=== PATIENT | male | born 1955 | race Caucasian/White ===

== ENCOUNTER 2024-11-25 08:38 | Day surgery (SDC) | payer MEDICARE, OTHER, SELFPAY ==
[2024-11-25] VITALS (10 sets, daily range): BP systolic 120–156; BP diastolic 50–63; BMI 27.8
[2024-11-25] MEDS: NSS 249 ML IV (09:17)
[2024-11-25 10:01] LABS: ACT-LR - POC 247 Seconds (116-155)
[2024-11-25] MEDS: NSS 1000 IV (10:27)
--- NOTE | 2024-11-25 11:09 | ITS.CL.CATH ---
Corporate Trainer - Catheterization
Cardiac Catheterization
Procedure Report:
LEFT HEART CATHETERIZATION
Date of Procedure: 11/25/2024
Procedures performed:
1: Coronary angiography
2: Left ventriculography
Primary Care Provider: Iveth GRIMALDO
Primary Screening Nurse: Dr. Андрей Bailey
INDICATION: The patient is a 69-year-old man who presents with 2 months of exertional angina. He underwent stress testing which suggested both RCA and LAD territory perfusion abnormalities. Echocardiography showed preserved LV systolic function.
He has had no resting symptoms despite walking 3 miles a day on a recent cruise to [facility]. He is a smoker. He reports his symptoms were reduced with aggressive antianginal medical therapy.
ACCESS: The patient was prepped and draped in usual sterile fashion. A 6 Maori sheath was placed in the right radial artery using the Seldinger over the wire technique.
HEMODYNAMIC FINDINGS (mmHg):
LV(s/d,EDP): 130/9, 21
Ao(s/d,m): 130/57, 79
ANGIOGRAPHIC FINDINGS:
Single-plane Left Ventriculography in [place] Projection: Normal LV systolic function with no clear regional wall motion abnormalities.
Coronary Angiography:
Dominance: Right
Left Main: Calcified ostial 50% stenosis best appreciated in the [facility] caudal projection. The midportion of appears to have some ectatic dilation followed by distal mild tapering. No dampening with 6 Maori diagnostic catheter engagement.
Left Anterior Descending: The left anterior descending artery is heavily calcified in the proximal portion but with only mild luminal irregularity. The first diagonal branch has a true ostial 70% stenosis and is a relatively small vessel that I do
not believe is a surgical target. The mid LAD has a smooth 90% stenosis. The distal LAD appears to be widely patent and an excellent surgical target.
Left Circumflex: The left circumflex artery is a very large caliber nondominant system that gives rise to
Right Coronary: Proximal total occlusion. There are brisk [id number] collaterals to a large distal RCA target.
Fluoroscopy Time (min): 2.2
Radiation Dose (mGy): 367
DAP (Gy.cm2): 19.4
Closure device: None. A TR band was applied for hemostasis at the right wrist.
Complications: None.
ASSESSMENT:
1: Severe multivessel obstructive coronary artery disease.
2: Normal LV systolic function with no significant mitral regurgitation.
CONCLUSIONS and RECOMMENDATIONS:
1: CT surgical evaluation for CABG. Expedited evaluation made for next Saturday with Dr. Viera.
2: Smoking cessation encouraged.
Judie Dumas M.D.
== END 2024-11-25 13:00 | disposition home or self-care (01) ==
LOC: CATH 08:38
PROVIDERS: ATTENDING PHYSICIAN Internal Medicine Interventional Cardiology; OTHER PHYSICIAN Internal Medicine
DX: I25.10 Atherosclerotic heart disease of native coronary artery without angina pectoris (principal); R07.89 Other chest pain; R94.31 Abnormal electrocardiogram [ECG] [EKG]; I10 Essential (primary) hypertension; E78.5 Hyperlipidemia, unspecified; F17.200 Nicotine dependence, unspecified, uncomplicated; Z79.82 Long term (current) use of aspirin
CPT/HCPCS: C1769; C1894; 85347; 93458; Q9967

== ENCOUNTER → 2024-12-02 16:35 | Outpatient (REF) | payer MEDICARE, OTHER, SELFPAY | LOC: HWRAD 16:35 | PROVIDERS: ATTENDING PHYSICIAN Thoracic Surgery (Cardiothoracic Vascular Surgery) | DX: Z01.810 Encounter for preprocedural cardiovascular examination (principal); I25.10 Atherosclerotic heart disease of native coronary artery without angina pectoris | CPT/HCPCS: 71250 ==

== ENCOUNTER 2024-12-15 05:04 | Inpatient (IN) | payer MEDICARE, OTHER, SELFPAY ==
[2024-12-01 12:17] VITALS: BMI 27.8
[2024-12-01 13:01] LABS: % Basophils 0.9 % (0-2); % Eosinophils 3.3 % (0-6); % Immature Granulocytes 0.5 % (0-0.5); % Lymphocytes 19.9 % (20.5-51.1); % Monocytes 11.3 % (1.7-9.3); % Neutrophils 64.1 % (42.2-75.2); Absolute Basophils 0.1 10^3/uL (0-0.2); Absolute Eosinophils 0.3 10^3/uL (0-0.7); Absolute Lymphocytes 1.6 10^3/uL (1.2-3.4); Absolute Monocytes 0.9 10^3/uL (0.1-0.6); Absolute Neutrophils 5.1 10^3/uL (1.4-6.5); Hematocrit 46.8 % (39.0-52.0); Hemoglobin 15.5 g/dL (13.0-18.0); Mean Corp Hgb Conc. 33.1 g/dL (33.0-37.0); Mean Corpuscular Hgb 30.9 pg (27.0-31.0); Mean Corpuscular Volume 93.2 fL (80.0-94.0); Mean Platelet Volume 9.9 fL (7.4-10.4); Nucleated Red Blood Cells % 0 % (-); Platelet Count 181 10^3/uL (130-400); Red Blood Cell Count 5.02 10^6/uL (4.70-6.10); Red Cell Dist. Width 14.2 % (11.5-14.5); White Blood Cell Count 7.9 10^3/uL (4.8-10.8)
[2024-12-01 13:24] LABS: INR 0.93; PT 12.7 Sec (11.4-14.6)
[2024-12-01 13:25] LABS: Urine Albumin Negative (Neg - Trace); Urine Bilirubin Negative (Negative); Urine Character Clear (Clear); Urine Color Yellow; Urine Glucose Negative (Negative); Urine Ketone Negative (Negative); Urine Leukocyte Negative (Negative); Urine Nitrite Negative (Negative); Urine Occult Blood 1+ (Negative); Urine Urobilinogen Negative (Neg - 1+)
[2024-12-01 13:26] LABS: APTT 28.4 Sec (23.4-35.0)
[2024-12-01 13:34] LABS: ALT (SGPT) 27 U/L (0-50); AST (SGOT) 25 U/L (17-59); Albumin 4.5 g/dl (3.5-5.0); Alkaline Phosphatase 99 U/L (38-126); Blood Urea Nitrogen 20 mg/dl (9-20); Calcium 9.7 mg/dl (8.4-10.2); Carbon Dioxide 31 mmol/L (22-30); Chloride 105 mmol/L (98-107); Direct Bilirubin 0.1 mg/dl (0.0-0.4); Estimated Creatinine Clearance 69 ml/min; Glucose 98 mg/dl (70-99); Potassium 5.5 mmol/L (3.5-5.1); Sodium 142 mmol/L (135-145); Total Bilirubin 0.8 mg/dl (0.2-1.3); Total Protein 7.1 g/dl (6.3-8.2); eGFR > 60.00
--- NOTE | 2024-12-01 13:37 | CM ---
Chart reviewed. Met with the patient and his in PAT. Reviewed preoperative and postoperative instructions and restrictions, along with showering guidelines. Gave patient 2 soaps. Gave patient Cardiac Surgery Book. Patient is agreeable to
a home visit by CT Transitional RN. Patient is independent of ADLS, lives with his in a 2 STH, 2 VILMA, 0 DME. Plan is for the patient to return home with CT Transitional RN.
[2024-12-01 14:30] LABS: Glycohemoglobin (HgbA1c) 5.6 % (4.0-5.6)
[2024-12-01 15:34] LABS: Urine Amorphous Seen; Urine Red Blood Cell 0-2 /HPF (0-2); Urine White Cell 0-2 /HPF (0-5)
[2024-12-15] VITALS (20 sets, daily range): BP systolic 92–153; BP diastolic 46–86; PULSE 2–55; BMI 27.7
[2024-12-15] MEDS: PROTONIX 40 MG PO (05:54)
[2024-12-15] MEDS: MAGNESIUM OXIDE 500 MG PO (05:54)
--- NOTE | 2024-12-15 06:07 | W.PN.UPDATE ---
Update Note
Progress Note Update
Pt's AM dose of Metoprolol is contraindicated and not given, pt's HR 47-52 bpm
[2024-12-15] MEDS: BACTROBAN 2% OINTMENT 1 APPLIC NASAL ×2 (06:10→19:54)
--- NOTE | 2024-12-15 06:26 | W.CVOR.SURPR ---
CVOR Surgeon Immed Pre Op
-
I have examined this patient prior to performance of the scheduled procedure.
The patient's condition is unchanged from the time of the dictated/written History and
Physical and the patient is able to undergo the scheduled procedure.
CABG + KSENIA Clip
--- NOTE | 2024-12-15 07:15 | PTCARENOTE ---
Pt admitted at 0513 to CVICU. Pt clipped and prepped per CVOR protocol. CHG bath completed. NPO since MN 12/15/24. He took his 2 CHG showers at home. Metoprolol held per order of PA. Pt's HR 49-52 bpm. He also took his Carvedilol 12.5 mg po on 12/14/24
at 1900. Other meds given. at bedside. Dr. Viera in to see pt. Taken to CVOR at 0630 with 2 RNs.
[2024-12-15 07:25] LABS: ACT+ - POC 118 Seconds (82-134)
[2024-12-15 08:08] LABS: Urine Albumin 2+ (Neg - Trace); Urine Bilirubin Negative (Negative); Urine Character Slightly Cloudy (Clear); Urine Glucose Negative (Negative); Urine Ketone Negative (Negative); Urine Leukocyte Negative (Negative); Urine Nitrite Negative (Negative); Urine Occult Blood 4+ (Negative); Urine Urobilinogen Negative (Neg - 1+)
[2024-12-15 08:09] LABS: Urine Color Pink
[2024-12-15 08:20] LABS: Urine Bacteria Few (Negative); Urine Red Blood Cell 80-90 /HPF (0-2)
--- NOTE | 2024-12-15 08:33 | W.PN.UPDATE ---
Update Note
Progress Note Update
H/o BXO w/ inability to pass Sotomayor catheter prior to CABG.
Urology consulted intraoperatively by CTS team.
12/15: s/p urethral/meatal dilation, meatotomy, flexible cystoscopy, urethral dilation over Guidewire, complicated catheter placement.
Maintain Sotomayor catheter 7-10 days prior to removal - will coordinate as outpatient after discharge.
[2024-12-15 09:27] LABS: ACT+ - POC 764 Seconds (82-134)
[2024-12-15 09:27] LABS: B.E. - POC 2.8 mmol/L; Glucose - POC 104 mg/dl (70-99); HCO3 - POC 29 mmol/L (21-28); Hematocrit - POC 38 % PCV (42-52); Hemodilution- POC No; Ionized Calcium - POC 1.23 mmol/L (1.15-1.33); Lactate - POC 0.86 mmol/L (0.36-0.75); O2 Saturation %Calculated-POC 99.5 % (94-98); PCO2 - POC 50 mmHg (35-48); PO2 - POC 169 mmHg (83-108); Potassium - POC 3.8 mmol/L (3.5-5.1); Sodium - POC 144 mmol/L (136-145); Specimen Type - POC Arterial; pH - POC 7.37 (7.35-7.45)
[2024-12-15 10:08] LABS: ACT+ - POC 815 Seconds (82-134)
--- NOTE | 2024-12-15 10:18 | CONS.URO ---
Addendum entered and electronically signed by Juan Carlos Pruett MD 12/15/24 11:02:
HPI:
69M scheduled for CABG - Urology consulted intraoperatively for difficult catheter placement.
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
Original Note:
Consultation
-
Date/Time Consultation Requested: 70912/15/24
Date/Time Consultation Performed: 72412/15/24
Requesting Provider: CT Surgery
Performing Provider: Flynn
Reason for Consultation: BXO of glans penis, difficult catheter placement
Medical History
Past Medical History
Past Medical History: CAD, GERD, HTN and Other (HLD, BXO of penis)
Past Surgical History: Orthopedic (shoulder surgery)
Social History
Tobacco: Smoker
Alcohol: Occasional
Drug: None
Family History
Family History: Reviewed & Not Pertinent
Allergies/Home Medications
Allergies
Allergy/AdvReac Type Severity Reaction Status Date / Time
penicillin G Allergy Unknown Rash Verified 12/15/24 05:53
Penicillins Allergy Rash Verified 12/15/24 06:20
Home Medications
�Medication �Instructions �Recorded �Confirmed �Type
amlodipine 10 mg tablet 5 mg PO BID 11/25/24 12/15/24 History
aspirin 81 mg tablet 81 mg PO DAILY 11/25/24 12/15/24 History
atorvastatin 40 mg tablet 40 mg PO DAILY 11/25/24 12/15/24 History
carvedilol 12.5 mg tablet 12.5 mg PO Q12H 11/25/24 12/15/24 History
nitroglycerin 0.4 mg sublingual 0.4 mg sublingual [id number] PRN 11/25/24 12/15/24 Rx
tablet chest pain #25 tabs
omeprazole 20 mg capsule,delayed 20 mg PO DAILY 11/25/24 12/15/24 History
release
Review of Systems
-
Unable to obtain full review of systems at this time due to: Patient Intubation
History Source: Family and Physician
A 12 point Review of Systems was completed except as noted: Yes
Physical Exam
Vital Signs
Vital Signs
Temp Pulse Resp BP Pulse Ox
97.7 F 52 20 152/79 100
12/15/24 05:13 12/15/24 06:19 12/15/24 05:13 12/15/24 05:13 12/15/24 05:13
Lab / Testing Results
Laboratory Results
12/01/24 12:29
12/01/24 12:29
Physical Exam
General: Well Developed, Well Nourished and No Apparent Distress
HEENT: Normocephalic and Anicteric
Respiratory: Other (intubated)
Cardiac: Regular Rhythm
Breast: N/A
GI: Soft, Non Tender and Non Distended
Rectal: Deferred by Provider
Musculoskeletal: No Edema
Skin: Warm and Dry
Assessment / Plan
-
BXO of penis
Meatal stenosis
Difficult Sotomayor catheter placement
exam indicative of severe meatal stenosis - BXO and urethral narrowing/scarring noted on cystoscopy.
See separate operative report for intraop findings.
- Sotomayor catheter placed (16Fr Cozad tip)
- Maintain Sotomayor catheter for 7-10 days given urethral instrumentation and dilation required
- F/U in 7-10 days for outpatient voiding trial w/ Urology
D/w CTS team.
Data Reviewed
-
Total Time Spent with Patient (in minutes): 45
Lab Data: Labs Reviewed
Old Records: Reviewed
[2024-12-15 10:40] LABS: ACT+ - POC 107 Seconds (82-134)
--- NOTE | 2024-12-15 10:48 | W.PN.CT.SURG ---
CT Surgery Operative Note
-
CARDIAC SURGERY OPERATIVE REPORT
Preoperative Diagnosis: Multivessel Coronary Artery Disease with involving the proximal LAD and abnormal stress test with exertional angina
Postoperative Diagnosis: Same
Procedure(s) Performed:
1. Standard sternotomy with aortic and right atrial cannulation
2. Internal mammary artery harvesting on the left
3. Coronary artery bypass grafting x 3 (In situ DAVIDSON to LAD, Ao to RSVG to OM 1, Ao to RSVG to distal RCA)
4. Left atrial appendage exclusion [35 mm device]
5. Endoscopic vein harvesting of right lower extremity
6. Placement temporary ventricular pacing wire
7. Transesophageal echocardiography
Date of Surgery: 12/15/2024
Comorbidities:
1. Multivessel coronary artery disease
2. Unstable angina
3. Hypertension
4. Hyperlipidemia
5. Anxiety disorder
6. Depression
7. GERD
8. Tobacco abuse
Attending Surgeon: Donnie Viera MD, MS
Assistants: Keysha Dumont PA-C (present and necessary to assistant in nursing, retraction, suction, exposure, suture management, and wound closure under my direction) & Donnie Kay PA-C (endo vein harvest)
Anesthesiology: Reid Moreno MD and Sheryl East CRNA
Scrub and Circulating RNs: Sonal Nation RN, Joanne Booker RN
Fryer Line Helper: Socorro Hartmann CCP
Anesthesia: GETA
EBL: per perfusion records
Products: none
CPB Time: 54 minutes
Aortic Cross Clamp Time: 43 minutes
Indication(s) for Procedures: This is a six 9-year-old male with an abnormal stress test he was been experiencing exertional angina. He was found to have multivessel coronary disease involving the proximal LAD. He was counseled about surgical
revascularization, ultimately shared decision making was to pursue CABG x 3 with left atrial appendage exclusion given his elevated [id number] of 2 or more.
Conduit(s) Quality:
DAVIDSON -semiskeletonized/excellent size conduit with good flow
RSVG -excellent/uniform in size with minimal varicosities, may be a slight bit thickened
Target(s) Quality:
dRCA -large quality target/mean flow of approximately 50 cc a minute at a pressure of 80 mmHg, flow probe assessment with a mean flow of 22 cc a minute with a pulse index of 2.8
OM -good/somewhat intramyocardial, mean flow approximately 20 cc a minute with a slightly higher pulsatility index of 10.0, this corresponds to the cath with approximately 50% distal left main disease.
LAD -excellent/good size quality target, good visual flow in the LAD territory, Transonic flow probe assessment with a mean flow of 29 cc a minute with a pulsatility index of 4.9
Findings: His left atrial appendage was verified to be free of any thrombus or debris preoperatively and found to be totally occlusive postoperatively. His left ventricular ejection fraction preoperatively was 60% with no significant regional wall
motion abnormalities. Following surgery his EF remained the same at 60% with no new regional wall motion abnormalities. The DAVIDSON was harvested in a skeletonized fashion. Following bypass grafting, test dose cardioplegia was given down each distal
and confirmed patency and hemostasis. Transonic's flow probe assessment was used reach graft demonstrated appropriate mean flows and pulsatility indices. At the inclusion of the case, I did not require any blood products, did not require inotropic
support, and and he was in his pauma sinus rhythm with a narrow complex and isoelectric EKG.
Description of Procedure: The patient was taken to the operating room. Their identity and procedure to be performed were verified and they were positioned supine on the operating table. Induction via general anesthesia with endotracheal intubation
was performed and central venous access and arterial monitoring were inserted. A preoperative transesophageal echocardiogram was performed to assess cardiac function and valvular function. The patient was then prepped and draped from chin to feet in
a sterile fashion. A preoperative time-out was performed with all members of the team present. A midline chest incision was performed along with median sternotomy. Simultaneous endoscopic access of the right lower extremity for saphenous vein
harvest was obtained along with administration of an initial 5,000 units of IV heparin. A RulTract sternal retractor was positioned to exposure the left internal mammary bed. The mammary was harvested and found to have good flow. A bulldog clamp was
applied to the distal end of the mammary after dividing it. It was wrapped in a papaverine soaked RayTec and replaced back into the left hemithorax. The RulTract was exchanged for a median sternal retractor. The innominate vein was isolated. Full
heparinization was given (a total of 48,000 units). We created a pericardial well. The aortic cannulation site was chosen where it was soft, pliable, and free of calcium. Cannulation was performed with an arterial cannula in the ascending aorta and
a triple-stage venous cannula through the right atrial appendage. The arterial cannula line had an appropriate bounce and correlating pressures with test dosing. Next, a root vent/antegrade cannula was inserted into the ascending aorta. The ACT was
confirmed to be over 400 and retrograde autologous priming was performed before commencing cardiopulmonary bypass. The pulmonary artery was away from the aorta to facilitate a clamp site. The aortic cross-clamp was placed after decreasing
the flow on the bypass and mean arterial pressure. A total of 1.2L initial dose of antegrade Del-Nido cardioplegia solution was given and planned for re-dosing every 75 minutes as necessary. There was rapid electro-mechanical arrest of the heart at
300 cc of cardioplegia. The left ventricle was observed for distention on echocardiogram and manual palpation. Cold slush was placed into a sponge and topically on the RV while we systemically cooled to 34 degrees centigrade. Once the heart was
fully arrested was rotated medially and the left atrial Penders was clipped with a 35mm device.
I positioned the heart to expose the OM vessel which was somewhat intramyocardial. A [place]edarville blade was used to expose the coronary and perform the arteriotomy. Coronary Ray scissors were used to enlarge the incision. The saphenous vein was trimmed
and beveled to an appropriate size. The distal anastomosis was performed using 7-0 prolene in an end-to-side fashion. Antegrade cardioplegia was administered into the graft. Appropriate hemostasis and flow were confirmed. The graft was measured for
length to the aorta and cut. A suitable target on the mid/distal left anterior descending was identified. We dissected and prepared the distal target in a similar fashion. We retrieved the DAVIDSON from the chest and created a pericardial opening while
being cognizant of the phrenic nerve to facilitate the course of the mammary. The distal end of the mammary was prepped and beveled to size. We verified orientation and length of the BITA and found brisk flow. An end-to-side anastomosis was created
with a 7-0 prolene. We temporarily released the bulldog clamp on the mammary to inspect flow. Perfusion to the LAD territory was visualized and hemostasis was confirmed. The bull clamp was replaced on the mammary. A suitable site on the distal RCA
was chosen. We dissected and prepared the distal target in a similar fashion. An end-to-side anastomosis was created with a 7-0 prolene. Antegrade cardioplegia was administered into the graft. Appropriate hemostasis and flow were confirmed. The
graft was measured for length to the aorta and cut. The heart was filled and the root was distended with antegrade cardioplegia to make final assessment of graft length and orientation. We created 2 aortotomies using a #11 blade then a 4.0mm aortic
punch. The proximal anastomoses were created in an end-to-side fashion using 6-0 prolene. At the the same time, we re-warmed to 36.5 degrees centigrade. The bulldog clamp was removed from the mammary. Temporary bipolar ventricular pacing wires were
placed on the base of the right ventricle. The patient was placed in a Trendelenburg position and flows on bypass were lowered. The aortic cross clamp was removed and flows were slowly brought back up. All bypass grafts were inspected and were free
from kinking or twisting. The distal and proximal anastomoses appeared hemostatic. Once transesophageal echocardiography appeared satisfactory for de-airing, the flows were temporarily lowered for root vent removal. After verifying acceptable
parameters, we initiated weaning from cardiopulmonary bypass. Once we were off cardiopulmonary bypass, the venous cannula was clamped and removed. A test dose of protamine was administered and the patient was monitored for any adverse reaction
before resuming protamine. Once half of the protamine dose was delivered, pump suckers were turned off and the systolic blood pressure was lowered for aortic decannulation. The aortic cannula was removed and pursestrings were tied down. All
cannulation sites were oversewn with a 4-0 prolene. The mammary bed was inspected and hemostasis was confirmed. Once the mediastinum was hemostatic, 19Fr Leon drain was placed in the left pleural cavity and two 24Fr Leon drains were placed within
the pericardium. The sternum was approximated with 4 #7 single and 3 #8 double stainless steel wires. Fascia was approximated with #1 vicryl suture. The subcutaneous, dermis and epidermis were closed in layers in a running fashion. The skin wound
was cleansed and dressed.
All instrument, sponge, and needle counts were confirmed to be correct x 2 at the end of the operation. The patient was transferred to the cardiac intensive care unit in critical but stable condition.
I, Dr. Donnie Viera, was present, scrubbed for, and performed all critical elements of this procedure.
Donnie Viera MD, MS
Cardiothoracic Surgeon
[facility]
This operative dictation was created using the GeckoGo dictation system. Please excuse any grammatical, typographical, or 'sound alike' errors
[2024-12-15 10:49] LABS: B.E. - POC -0.1 mmol/L; Glucose - POC 108 mg/dl (70-99); HCO3 - POC 26 mmol/L (21-28); Hematocrit - POC 31 % PCV (42-52); Hemodilution- POC Yes; Hemoglobin Calculated - POC 10.4; Ionized Calcium - POC 1.25 mmol/L (1.15-1.33); Lactate - POC 1.17 mmol/L (0.36-0.75); O2 Saturation %Calculated-POC 99.8 % (94-98); PCO2 - POC 46 mmHg (35-48); PO2 - POC 238 mmHg (83-108); Potassium - POC 4.5 mmol/L (3.5-5.1); Sodium - POC 145 mmol/L (136-145); Specimen Type - POC Arterial; pH - POC 7.35 (7.35-7.45)
[2024-12-15] MEDS: NEURONTIN PO (11:07)
--- NOTE | 2024-12-15 11:20 | PTCARENOTE ---
Pt received from CVOR at 1120. Pt intubated and sedated on precedex gtt. Pt spontaneously moves right arm and flickers eyes, does not follow commands at this time. POX 98%. 8.0 ETT 23cm at the lip. SIMV 40% 14 500 5. No breathing over the vent. B/l
anterior lungs audible. Small amount of crepitus to right upper chest, CT DROP WIRE HANGER notified. Left pleural CT to -20cm suction draining red fluid. No air leaks, tidaling noted. Mediastinal x2 chest tubes y-sited to 1 atrium to -20cm suction draining red
fluid. No air leak, tidaling noted. SB with 1st degree AVB on tele with rates in the 50s. BP supported with levophed gtt to maintain goal SBP 90-[address] Viera. Epicardial v-wire thresholds completed and set to VVI 30//4, no pacing noted after
thresholds completed. Bilateral radial pulses palpable. Bilateral DP pulses weakly palpable. No edema noted. CVP 7-10. Abdomen soft, round, hypoactive BS. Sotomayor catheter intact draining clear yellow urine. Sternal incision approximated with skin
glue, FOUNTAIN MANAGER. Chest tube sites covered, dressing CDI. Right groin puncture site approximated with skin glue. Right SVG harvest site approximated with skin glue, covered with RODRI. Right IJ cordis intact with slick. Right radial mandeep intact with
appropriate waveforms. All lines flushed, leveled, and zeroed. Right AC 18g PIV intact. Gtts: NSS KVO, Precedex @ 0.5mcg/kg/hr, Insulin @1unit/hr. See MAR for medication administration. See worklist for complete nursing assessment. Post op EKG,
labs, and CXR completed.
[2024-12-15 11:23] LABS: Glucose - Point of Care 99 mg/dl (70-99)
--- NOTE | 2024-12-15 11:33 | W.PN.UPDATE ---
Update Note
Progress Note Update
69y.o male electively admitted 12/15/24 for CABG due to unstable angina, multivessel coronary disease
IV fluids: 1000
U.O.:� 250
Blood:� cell saver 250
Wires:� bipolar v-wire
Drips:� Precex, Insulin
�
NEURO: sedated, pupils +2mm B/L
RESP: #8OT @24cm> 500/40%/14/5. Lungs clear B/L. 2 mediastinal (40cc on arrival) and L pleural (0cc on arrival) chest tubes to -20cm suction. Sanguineous drainage, no air leak, no crepitus
CV: RRR +S1, S2, no S3, no�rub, no murmur. Dermabond to median sternotomy. RIJ w/Slik
ABD: flat, soft, no BS
EXT: no edema, +2/4 DP pulses B/L, +soft B/L femoral bruit, RLE RODRI wrap intact; right radial A-line intact
: Sotomayor with clear yellow urine
�
A/P: POD #0 s/p CABG x 3 (DAVIDSON to LAD, SVG to OM 1, SVG to distal RCA), left atrial appendage exclusion [35 mm device]
MERRY: awaiting report. EF 57% by ore-op TTE�
- wean and extubate
- tolerated alcides-op Ancef w/o rash
- keep SBP 90-130mmHg
# CAD
- will require ASA, Plavix, statin, beta-izabel
# HTN
- assess BP to resume home Amlodipine
�
# acute surgical blood loss anemia-expected
- trend CBC
�
�# Balanitis xerotica obliterans
- Sotomayor placed by urology
- keep Sotomayor as inpatient>f/u with Urology as outpatient for removal
[2024-12-15 11:38] LABS: Mixed Venous O2 Saturation 77.7 %
--- NOTE | 2024-12-15 11:40 | CON.INTV ---
Consultation
Consultation Request
Date/Time Consultation Requested: 12/15/2024 - 1031
Date/Time Consultation Performed: 12/15/2024 - 1054
Requesting Provider: Rose Marie Chandler PA-C
Performing Provider: Dr. Drake
Reason for Consultation: s/p CABG x3
Medical History
-
Chief Complaint: Elective CABG
History of Present Illness:
69-year-old male active cigarette smoker with a past medical history of multivessel CAD, hypertension, anxiety/depression and GERD who presents for elective CABG. Patient known to the cardiothoracic surgery service with last visit on 12/02/[address] Viera. On 11/25/2024 he had a left heart catheterization due to 2 months of exertional angina with a stress test suggesting RCA + LAD territory perfusion abnormalities. Left heart cath showed severe multivessel obstructive CAD with no
significant mitral regurgitation and normal LV systolic function. LVEDP was mildly elevated at 21 mmHg. Risks and benefits of surgical revascularization were reviewed and patient has agreed to surgical intervention. Today he underwent a CABG x 3
with a left atrial appendage exclusion. There were no complications, and the patient was transferred to the CVICU postoperatively with Race Engine Builder services consulted for additional management/recommendations.
When I saw the patient, he had already been extubated to 6 L/min nasal cannula. Blood gas was obtained shortly thereafter showing acute hypercapnia with pH 7.29 and [id number]. He was then placed onto BiPAP 10/5 bled with 6 L/min. He is saturating
97% with heart rate 59 and BP via A-line: 93/47. Patient's , Amada, present at bedside and all questions were answered. Patient is currently on an insulin drip at 0.8 units/hr and has mediastinal chest tubes x 2 with a left-sided pleural chest
tube x 1. Patient is drowsy although able to look towards me during my questioning and is following commands but then would quickly fall back asleep.
PMHx: Hypertension, CAD, anxiety, depression, balanitis xerotica obliterans, GERD
PSHx: Right rotator cuff tear s/p repair (2011), left shoulder repair (2018
Past Medical History
Past Medical History: Other (Above as per HPI)
Past Surgical History: Other (Above as per HPI)
Social History
Tobacco: Smoker (Smokes several cigarettes a day, been smoking for 30 years)
Alcohol: Former (Quit drinking in 1989)
Drug: Former User
Personal:
Living: With Family
Employment: Retired
Family History
Family History: CAD (Father + sibling), Cancer (Mother (unknown type)), Hypertension (Sibling) and Other (Sibling: A-fib s/p pacemaker)
Allergies / Home Medications
Allergies
Allergy/AdvReac Type Severity Reaction Status Date / Time
penicillin G Allergy Unknown Rash Verified 12/15/24 05:53
Penicillins Allergy Rash Verified 12/15/24 06:20
Home Medications
�Medication �Instructions �Recorded �Confirmed �Last Taken �Type
amlodipine 10 mg tablet 5 mg PO BID 11/25/24 12/15/24 12/12/24 08:30 History
aspirin 81 mg tablet 81 mg PO DAILY 11/25/24 12/15/24 12/14/24 08:30 History
atorvastatin 40 mg tablet 40 mg PO DAILY 11/25/24 12/15/24 12/14/24 08:30 History
carvedilol 12.5 mg tablet 12.5 mg PO Q12H 11/25/24 12/15/24 12/14/24 19:00 History
nitroglycerin 0.4 mg sublingual 0.4 mg sublingual [id number] PRN 11/25/24 12/15/24 Unknown Rx
tablet chest pain #25 tabs
omeprazole 20 mg capsule,delayed 20 mg PO DAILY 11/25/24 12/15/24 12/14/24 08:30 History
release
Review of Systems
-
Unable to Obtain full review of systems at this time due to: Acuity
Vitals / Labs / Diagnostic Testing
Vital Signs
Temp Pulse Resp BP Pulse Ox
97.5 F 57 16 102/50 98
12/15/24 12:00 12/15/24 12:00 12/15/24 12:00 12/15/24 12:00 12/15/24 12:20
Lab Data
12/15/24 11:23
Laboratory Results
12/15/24
11:23
PT 16.6 H
INR 1.32
APTT 27.7
pH 7.34 L
pCO2 47
pO2 161 H
HCO3 25.4
O2 Delivery Level
Diagnostic Testing:
Physical Exam
-
HEENT: Normocephalic, Anicteric and Other (BiPAP mask on face)
Cardiovascular: S1/S2 and Peripheral Edema (negative)
Respiratory: Wheeze (negative), Rales (negative), Rhonchi (negative), Non-Labored Respirations and Other (Mediastinal chest tubes x 2 + left pleural chest tube x 1)
GI: Soft, Non Distended, Non Tender and Normal Bowel Sounds
Neurology: Tremors (negative) and Other (Drowsy but easily arousable and following commands)
Skin: Warm and Dry
General: Respiratory Distress (negative), Comfortable, Fever (negative) and Chills (negative)
Assessment
-
Assessment: 69-year-old male active cigarette smoker with a past medical history of multivessel CAD, hypertension, anxiety/depression and GERD who presents for elective CABG. Patient known to the cardiothoracic surgery service with last visit on
12/02/[address] Viera. On 11/25/2024 he had a left heart catheterization due to 2 months of exertional angina with a stress test suggesting RCA + LAD territory perfusion abnormalities. Left heart cath showed severe multivessel obstructive CAD
with no significant mitral regurgitation and normal LV systolic function. LVEDP was mildly elevated at 21 mmHg. Risks and benefits of surgical revascularization were reviewed and patient has agreed to surgical intervention. Today he underwent a
CABG x 3 with a left atrial appendage exclusion. There were no complications, and the patient was transferred to the CVICU postoperatively with [employer] services consulted for additional management/recommendations.
Chronic conditions REVENUE RESEARCH ANALYST: Hypertension, CAD, anxiety, depression, balanitis xerotica obliterans, GERD
Impression:
#MV-CAD s/p CABG x 3 with left atrial appendage exclusion (POD #0)
#Acute anemia due to above
#Acute thrombocytopenia due to above
#Acute respiratory failure with hypercapnia + hypoxia due to recent anesthesia
#Hyperglycemia (mild) � HbA1c: 5.6 on 12/01/2024
#Active tobacco use disorder
#GERD
#Hypertension
#Naty/depression
Plan:
Patient had been extubated earlier this afternoon and is now on BiPAP given acute hypercapnic respiratory failure
Continue trending pH + pCO2 with serial blood gases to assure that the pCO2 is improving
As long as pH remains >7.35 with the next pCO2 <50, then would give the patient a break from BiPAP and consider using BiPAP again tonight with sleep. I will recheck a blood gas tomorrow morning
Maintain SpO2 >90-94%
prn nebulized bronchodilators - not currently bronchospastic
Encourage incentive spirometer q1hr while awake
Pulmonary artery catheter parameters will be followed
Pressors/antihypertensive/inotropes/diuretics will be provided as needed
Maintain MAP>65
Replete electrolytes with K>4, Mg>2
Monitor chest tube output (mediastinal chest tubes x 2 + left pleural chest tube x 1)
Monitor hemoglobin
Monitor platelet count and coags
Transfuse blood products as needed to maintain Hb>7g/dL, plt>50k (given post-operative status)
CT surgery managing chest tubes
Monitor blood sugar to maintain euglycemia with goal BG 110-140
Insulin drip per protocol
Aspiration precautions
DVT prophylaxis
Early nutrition
Early mobilization
Continue CVICU level care.
Critical care statement: A total of 41 minutes of critical care time was provided for this patient today. This includes management of ventilator, spontaneous breathing trial, arterial blood gases, pressors, of unstable vital signs, evaluation of the
patient at bedside, reviewing the patient's pertinent medical records including radiographs, microbiology, laboratory evaluations, and discussion with primary team and critical care nursing.
[2024-12-15 11:41] LABS: B.E. -0.8 mmol/L; HCO3 25.4 mmol/L (21-28); Ionized Calcium 1.21 mMOL/L (1.15-1.33); O2 Saturation % 99.7 % (94-98); PCO2 47 mmHg (35-48); PO2 161 mmHg (83-108); Potassium 4.5 mMOL/L (3.5-5.1); Sodium 138 mMOL/L (136-145); pH 7.34 (7.35-7.45)
[2024-12-15 11:42] LABS: Hematocrit 35.7 % (39.0-52.0); Hemoglobin 12.2 g/dL (13.0-18.0); Platelet Count 112 10^3/uL (130-400)
[2024-12-15 11:47] LABS: INR 1.32; PT 16.6 Sec (11.4-14.6)
[2024-12-15 11:48] LABS: APTT 27.7 Sec (23.4-35.0)
[2024-12-15] MEDS: NSS 500 IV (11:49)
[2024-12-15] MEDS: DILAUDID 0.5 MG IV (11:49)
[2024-12-15] MEDS: ANCEF 10 IV ×2 (11:49)
--- NOTE | 2024-12-15 11:50 | PTCARENOTE ---
Pt spontaneously awakens. Able to follow commands to squeeze hands, wiggle toes, and shake head yes/no appropriately. Given dilaudid for CPOT 8. Pt drifts off to sleep.
[2024-12-15 11:51] LABS: B.E. - POC 3.5 mmol/L; Glucose - POC 122 mg/dl (70-99); HCO3 - POC 29 mmol/L (21-28); Hematocrit - POC 32 % PCV (42-52); Hemodilution- POC Yes; Hemoglobin Calculated - POC 10.8; Ionized Calcium - POC 1.01 mmol/L (1.15-1.33); Lactate - POC < 0.30 mmol/L (0.36-0.75); PCO2 - POC 48 mmHg (35-48); PO2 - POC 527 mmHg (83-108); POC Comment CPB; Potassium - POC 6.2 mmol/L (3.5-5.1); Sodium - POC 142 mmol/L (136-145); Specimen Type - POC Arterial; pH - POC 7.39 (7.35-7.45)
[2024-12-15 11:51] LABS: Blood Urea Nitrogen 18 mg/dl (9-20); Estimated Creatinine Clearance 87 ml/min; Glucose 101 mg/dl (70-99); Magnesium 3.1 mg/dl (1.6-2.3)
[2024-12-15 11:52] LABS: B.E. - POC 4.8 mmol/L; Glucose - POC 154 mg/dl (70-99); HCO3 - POC 29 mmol/L (21-28); Hematocrit - POC 31 % PCV (42-52); Hemodilution- POC Yes; Hemoglobin Calculated - POC 10.7; Ionized Calcium - POC 1.09 mmol/L (1.15-1.33); Lactate - POC < 0.30 mmol/L (0.36-0.75); PCO2 - POC 41 mmHg (35-48); PO2 - POC 409 mmHg (83-108); POC Comment CPB; Potassium - POC 5.5 mmol/L (3.5-5.1); Sodium - POC 142 mmol/L (136-145); Specimen Type - POC Arterial; pH - POC 7.46 (7.35-7.45)
--- NOTE | 2024-12-15 12:13 | CM ---
pt in OR today, cm to follow
--- NOTE | 2024-12-15 12:20 | PTCARENOTE ---
Pt more sustained awakening. RT at bedside to place pt on cpap trial. POX 98%, pt tolerating.
[2024-12-15 12:44] LABS: ACT+ - POC > 1003 Seconds (82-134)
[2024-12-15 12:58] LABS: Glucose - Point of Care 140 mg/dl (70-99)
[2024-12-15 13:05] LABS: B.E. - POC 0.1 mmol/L; Blood Urea Nitrogen - POC 18 mg/dl (3-120); Chloride - POC 108 mmol/L (96-111); Creatinine - POC 0.85 mg/dl (0.3-1.0); Glucose - POC 149 mg/dl (70-99); HCO3 - POC 27 mmol/L (21-28); Hematocrit - POC 36 % PCV (42-52); Hemodilution- POC No; Hemoglobin Calculated - POC 12.2; Lactate - POC 1.05 mmol/L (0.36-0.75); O2 Saturation %Calculated-POC 94.6 % (94-98); PCO2 - POC 53 mmHg (35-48); PO2 - POC 81 mmHg (83-108); Potassium - POC 4.3 mmol/L (3.5-5.1); Sodium - POC 144 mmol/L (136-145); Specimen Type - POC Arterial; pH - POC 7.32 (7.35-7.45)
[2024-12-15] MEDS: LR 250 ML IV ×4 (13:05→18:13)
--- NOTE | 2024-12-15 13:07 | PTCARENOTE ---
CPAP ABG drawn, CT LAW ENFORCEMENT OFFICER at bedside to run EPOC. Verbal orders to extubate patient. RT at bedside to extubate patient to 6L NC, pt tolerated, POX 98%. Drowy, but awakens easily. Pt bathed with CHG wipes, turned from side to side, new linens placed. IS
completed 1250ml achieved. Pt's at bedside.
[2024-12-15 13:49] LABS: B.E. -0.7 mmol/L; HCO3 26.9 mmol/L (21-28); O2 Saturation % 98.3 % (94-98); PCO2 56 mmHg (35-48); PO2 96 mmHg (83-108); pH 7.29 (7.35-7.45)
[2024-12-15 14:04] LABS: Glucose - Point of Care 99 mg/dl (70-99)
[2024-12-15] MEDS: TORADOL 15 MG IV (14:15)
[2024-12-15] MEDS: OFIRMEV 100 IV (14:15)
--- NOTE | 2024-12-15 14:15 | PTCARENOTE ---
Post extubation ABG results communicated to CT SENIOR SYSTEMS DEVELOPER, Bipap orders. RT notified. Pt placed on bipap 10/5 6L. POX 94%. Pt tolerating. Pt rating sternal pain 7/10 but will drift off to sleep easily. CT SENIOR SYSTEMS DEVELOPER notified, additional non narcotic pain meds
administered per orders.
[2024-12-15] MEDS: TYLENOL PO (14:16)
[2024-12-15 15:05] LABS: Glucose - Point of Care 105 mg/dl (70-99)
[2024-12-15 15:37] LABS: B.E. 1.5 mmol/L; HCO3 27.2 mmol/L (21-28); Ionized Calcium 1.18 mMOL/L (1.15-1.33); O2 Saturation % 98.6 % (94-98); PCO2 46 mmHg (35-48); PO2 90 mmHg (83-108); Potassium 4.4 mMOL/L (3.5-5.1); pH 7.38 (7.35-7.45)
[2024-12-15 15:48] LABS: Hematocrit 37.1 % (39.0-52.0); Hemoglobin 12.6 g/dL (13.0-18.0); Platelet Count 150 10^3/uL (130-400)
--- NOTE | 2024-12-15 16:00 | PTCARENOTE ---
Pt reassessed. Pt more awake. Rates right leg pain /. Denies nausea. CHRISTENSEN with equal strength throughout. SB-SR with 1st degree AVB with rates 50s-60s. BP supported with levo. No pacing noted. POX 98% on Bipap 04/[address] output WNL. Sotomayor
draining adequate clear yellow urine. All lines remain intact. Surgical sites stable. Pt's at bedside.
[2024-12-15] MEDS: PACERONE PO (16:02)
[2024-12-15] MEDS: FLEXERIL 5 MG PO (16:10)
[2024-12-15] MEDS: NEURONTIN 100 MG PO ×2 (16:10→21:59)
[2024-12-15] MEDS: LOW STRENGTH ASPIRIN 81 MG PO (16:10)
[2024-12-15 16:15] LABS: Glucose - Point of Care 112 mg/dl (70-99)
--- NOTE | 2024-12-15 16:35 | CON.CAR ---
Addendum entered and electronically signed by Boubacar Dale MD 12/15/24 17:07:
I saw and examined the patient.
The Communications Tech's note was reviewed and I agree with the note.
Comment: Briefly, 69-year-old man with recently identified multivessel CAD following abnormal stress test who underwent CABG x 3 earlier today.
At the time of my evaluation he was resting comfortably in the CVICU after being extubated to BiPAP on low-dose Levophed for hemodynamic support
Maintaining sinus rhythm on telemetry
Filling pressures are at goal based on invasive hemodynamics
Agree with current cardiac meds: Aspirin/Plavix, high intensity statin. Beta-izabel as blood pressure tolerates.
We will continue to follow with you
Original Note:
Consultation
Consultation Request
Date/Time Consultation Performed: 12/15/24
Requesting Provider: Dr. Viera
Performing Provider: Melissa Hurd PA-C for Dr. Dale
Reason for Consultation: CABG
Medical History
-
Chief Complaint: CABG
History of Present Illness:
Patient is a 69-year-old male with out significant past medical history who presented to [facility] with 2 months of exertional angina. He underwent a stress test which showed evidence of both RCA and LAD territory perfusion defects. Echocardiogram
showed preserved EF. Underwent cardiac catheterization 11/25/2024 which showed multivessel coronary disease and was referred for CT surgical evaluation. He presented today for CABG x3. He is presently waking up, extubated. Cardiology consulted
for postoperative management.
PMH:
Multivessel coronary disease by cath 11/25/2024
HTN
Hyperlipidemia
Tobacco use
GERD
Anxiety/depression
Past Medical History
Past Medical History: Other (in HPI)
Social History
Tobacco: Smoker
Alcohol: Former
Personal:
Living: With Family
Employment: Retired
Family History
Family History: Other (afib, stents, PPM, HTN)
Allergies / Home Medications
Allergy/AdvReac Type Severity Reaction Status Date / Time
penicillin G Allergy Unknown Rash Verified 12/15/24 05:53
Penicillins Allergy Rash Verified 12/15/24 06:20
�Medication �Instructions �Recorded �Confirmed �Type
amlodipine 10 mg tablet 5 mg PO BID 11/25/24 12/15/24 History
aspirin 81 mg tablet 81 mg PO DAILY 11/25/24 12/15/24 History
atorvastatin 40 mg tablet 40 mg PO DAILY 11/25/24 12/15/24 History
carvedilol 12.5 mg tablet 12.5 mg PO Q12H 11/25/24 12/15/24 History
nitroglycerin 0.4 mg sublingual 0.4 mg sublingual [id number] PRN 11/25/24 12/15/24 Rx
tablet chest pain #25 tabs
omeprazole 20 mg capsule,delayed 20 mg PO DAILY 11/25/24 12/15/24 History
release
Review of Systems
-
History Source: Patient and Family
All other systems: Negative unless noted
Physical Exam
Vital Signs
Temp Pulse Resp BP Pulse Ox
98.9 F 60 18 105/53 98
12/15/24 16:00 12/15/24 16:10 12/15/24 16:10 12/15/24 16:00 12/15/24 16:10
Lab Results
12/15/24 15:28
12/15/24 11:23
Physical Exam
General: No Apparent Distress, Comfortable and Other (on NRB)
HEENT: Normocephalic, Anicteric and Moist Mucous Membranes
Respiratory: Other (diminished BS B/L)
Cardiac: S1/S2 and Regular Rhythm
GI: Soft, Non Tender, Non Distended and Normal Bowel Sounds
Musculoskeletal: No Clubbing, No Cyanosis and Edema (trace to 1+ edema of B/L LE)
Skin: Warm and Dry
Neuro: AO x 3
Impression / Plan
-
Primary Film Mounter: Dr. Bailey of [facility]
Assessment:
MV CAD s/p CABG x3 In situ DAVIDSON to LAD, Ao to RSVG to OM 1, Ao to RSVG to distal RCA, KSENIA clip 12/15/24
HTN
Hyperlipidemia
Tobacco use
GERD
Anxiety/depression
MERRY 12/15/24: EF 59%, no RWMA, grossly normal cardiac valves, normal KSENIA, severe atheromatous disease of aortic arch
Plan:
-s/p CABG x3 In situ DAVIDSON to LAD, Ao to RSVG to OM 1, Ao to RSVG to distal RCA, KSENIA clip 12/15/24
-extubated
-on levo @2, wean as able
-post op EKG SB with 1st degree av block and NSSTS. follow on tele
-hgb 12.6. for asa, plavix
-continue post op care
-smoking cessation
-d/w patient and at bedside
Data Reviewed
-
EKG: Tracing Personally Visualized and interpreted
Medical Tests (Nuc Med, Echo etc): Report Reviewed by me
Labs: Labs Reviewed by me
Old Records: Reviewed
--- NOTE | 2024-12-15 17:15 | PTCARENOTE ---
Per CT MANAGER DIGITAL AD OPERATIONS and RT, Bipap removed. Pt placed on 4L NC. Pt tolerating POX 98%.
[2024-12-15] MEDS: ANCEF 5 IV (18:07)
[2024-12-15 18:13] LABS: Glucose - Point of Care 72 mg/dl (70-99)
[2024-12-15] MEDS: ROXICODONE 5 MG PO ×2 (18:19→22:09)
[2024-12-15 19:04] LABS: Glucose - Point of Care 81 mg/dl (70-99)
--- NOTE | 2024-12-15 19:45 | PTCARENOTE ---
assumed care of pt from previous RN. pt A&Ox4, bedrest s/p CVOR. SB/SR on tele-monitor. temp epicardial v-wires plugged into pulse generator, w/ back up settings VVI 30//4. POX 97% on [address] x3 (mediastinal x2, L pleural) to -20cm wall suction,
draining sanguineous drainage. abd s/n, hypoactive BS. judd catheter placed by urology. draining clear, yellow colored urine. all surgical sites stable, CDI. R IJ cordis w/ SLIC. R radial a-line. all lines leveled, zeroed, flushed. PIV intact. see
worklist for complete nursing assessment, interventions, gtt titrations, VS, and I&Os.
[2024-12-15] MEDS: DILAUDID 0.25 MG IV (19:54)
[2024-12-15] MEDS: SENOKOT-S 1 TABLET PO (19:54)
[2024-12-15 20:00] LABS: Glucose - Point of Care 115 mg/dl (70-99)
[2024-12-15] MEDS: CALCIUM GLUCONATE 130 MG IV (20:39)
[2024-12-15 21:18] LABS: Glucose - Point of Care 100 mg/dl (70-99)
[2024-12-15] MEDS: TYLENOL 1000 MG PO (21:58)
[2024-12-15 22:02] LABS: Glucose - Point of Care 92 mg/dl (70-99)
[2024-12-15 23:06] LABS: Glucose - Point of Care 89 mg/dl (70-99)
[2024-12-16] VITALS (20 sets, daily range): BP systolic 103–138; BP diastolic 55–68; PULSE 2–69; O2SAT 64–96; BMI 28.5
--- NOTE | 2024-12-16 | PTCARENOTE ---
assessment remains unchanged. VSS.
[2024-12-16] MEDS: DILAUDID 0.5 MG IV (00:14)
[2024-12-16 01:09] LABS: Glucose - Point of Care 93 mg/dl (70-99)
[2024-12-16 03:15] LABS: Glucose - Point of Care 94 mg/dl (70-99)
[2024-12-16] MEDS: ANCEF 5 IV ×2 (03:29→11:41)
[2024-12-16] MEDS: OFIRMEV 100 IV (03:29)
[2024-12-16 03:36] LABS: Hematocrit 34.4 % (39.0-52.0); Hemoglobin 11.8 g/dL (13.0-18.0); Mean Corp Hgb Conc. 34.3 g/dL (33.0-37.0); Mean Corpuscular Hgb 31.1 pg (27.0-31.0); Mean Corpuscular Volume 90.5 fL (80.0-94.0); Platelet Count 138 10^3/uL (130-400); Red Cell Dist. Width 14.4 % (11.5-14.5); White Blood Cell Count 15.9 10^3/uL (4.8-10.8)
--- NOTE | 2024-12-16 03:42 | W.PN.CT ---
Today's Communication / Plan
-
Plan:
-No major issues overnight. Hemodynamically and neurologically stable
-Successfully extubated yesterday 12/15/24 @ 1310
-Weaned off Levophed gtt overnight. Remains on insulin gtt per protocol
-No swan, U/O since OR 885 mL
-Monitor chest tube output: 2meds 215/475, L pleural 5/45 (may be able to d/c today). CXR this AM looks clear with mild atelectasis on my review. F/U official report
-Cont. current meds (ASA, Plavix, Amiodarone, Lipitor; BB if BP permits)
-D/C'd SLIC and A-line @ 0430
-Keep judd given difficulty insertion intraop, requiring surgery
-Will transition to tele phase once off insulin drip today
-Maintain cordis
-Maintain temporary PW (will likely pull tomorrow)
-Encourage use of IS
-Wean off of O2 as tolerated
-OOB into chair/Ambulate
Assessment / Plan
-
Assessment:
-S/P Standard sternotomy/CABG x 3 (In situ DAVIDSON to LAD, Ao to RSVG to OM 1, Ao to RSVG to distal RCA)/Left atrial appendage exclusion [35 mm device]/ Endoscopic vein harvesting of right lower extremity, by Dr. Viera, 12/15/24, pod#1
-Difficult judd insertion intraop S/P Urethral dilation and calibration (Raghav male dilators)/Meatotomy/Flexible cystoscopy/Urethral dilation with S-curve dilators (over a guidewire)/Complicated catheter placement (16-Micron[employer] Councill tip), by
Dr Pruett of Urology, 12/15/24
-Multivessel coronary artery disease
-Unstable angina
-LVEF 59% per intraop MERRY
-Hypertension
-Hyperlipidemia
-Preop bradycardia (47-52 bpm)
-Anxiety disorder
-Depression/Anxiety
-GERD
-Current tobacco abuse (smokes several cigarettes per day x 30 years)
-Former ETOH (quit )
-History of BXO of the glans penis
-Meatal stenosis and scarring
-Difficult Judd catheter placement
-S/P L shoulder repair, 2018
-S/P R rotator cuff repair, 2011
-Acute postop blood loss/Anemia (stable without blood transfusion)
-Acute postop thrombocytopenia (transfused 1 {5 pk} plts)
-Acute postop atelectasis
-Acute postop fever, likely d/t atelectasis
-Acute postop hypovolemia with subsequent hypervolemia
-Intraop difficult judd insertion S/P Urethral dilation/calibration and judd insertion by Urology
Discussed patient care with: Cardiology, Nursing, Respiratory Therapy, Pharmacy and Care Team
Subjective
Procedure
S/P Standard sternotomy/CABG x 3 (In situ DAVIDSON to LAD, Ao to RSVG to OM 1, Ao to RSVG to distal RCA)/Left atrial appendage exclusion [35 mm device]/ Endoscopic vein harvesting of right lower extremity, by Dr. Viera, 12/15/24
-
Date of Service: December 16, 2024
Pt c/o incisional pain, otherwise feels well
Objective Data
-
Lab Results
12/16/24 03:13
PT 16.6 Sec (11.4-14.6) H 12/15/24 11:23
INR 1.32 12/15/24 11:23
APTT 27.7 Sec (23.4-35.0) 12/15/24 11:23
Vital Signs
Vital Signs
Temp Pulse Resp BP Pulse Ox
100.5 F H 61 20 121/58 96
12/16/24 03:00 12/16/24 02:15 12/16/24 02:15 12/16/24 02:00 12/16/24 03:00
CT Intake/Output/Weight
12/15/24 12/15/24 12/16/24
06:59 18:59 06:59
Intake Total 1219.3 / 1548.7 329.4 / 1548.7
Output Total 815 / 1290 475 / 1290
Balance 404.3 / 258.7 -145.6 / 258.7
SaO2: 96 (2L)
Physical Exam
-
General: Awake, Oriented and AOx3
Cardiovascular: Regular rate & rhythm, No Murmurs, Rub and No Rub
Respiratory: Decreased Breath Sounds (at bases, otherwise clear)
Sternum: Stable
Incision: Clean, Dry, Intact and Dressing Intact
Extremities: Other (+trace edema)
Data Reviewed
-
Lab Results: Results Reviewed
Medications: Active Meds Reviewed
Chest X-Ray: Report Reviewed and Image Reviewed
ECG: Report Reviewed and Image Reviewed
[2024-12-16 04:03] LABS: Blood Urea Nitrogen 23 mg/dl (9-20); Calcium 8.7 mg/dl (8.4-10.2); Carbon Dioxide 24 mmol/L (22-30); Chloride 112 mmol/L (98-107); Estimated Creatinine Clearance 69 ml/min; Glucose 92 mg/dl (70-99); Magnesium 2.3 mg/dl (1.6-2.3); Potassium 4.6 mmol/L (3.5-5.1); Sodium 139 mmol/L (135-145); eGFR > 60.00
[2024-12-16 05:17] LABS: Glucose - Point of Care 90 mg/dl (70-99)
[2024-12-16] MEDS: TYLENOL PO (06:49)
[2024-12-16 07:16] LABS: Glucose - Point of Care 97 mg/dl (70-99)
--- NOTE | 2024-12-16 08:28 | W.PN.INTV ---
Today's Communication / Plan
Recommendations
Up OOB as tolerated
Monitor for fever recurrence
Encouraged incentive spirometer
If he spikes another fever then would harrington-culture and start Unasyn
Maintain MAP >65
Goal BG 110�140
Patient is being downgraded to CVICU�telemetry status. Given the patient fevers, Sociology Research Assistant/Pulmonary services will continue to briefly follow along.
Assessment
-
Assessment: 69-year-old male active cigarette smoker with a past medical history of multivessel CAD, hypertension, anxiety/depression and GERD who presents for elective CABG. Patient known to the cardiothoracic surgery service with last visit on
12/02/[address] Viera. On 11/25/2024 he had a left heart catheterization due to 2 months of exertional angina with a stress test suggesting RCA + LAD territory perfusion abnormalities. Left heart cath showed severe multivessel obstructive CAD
with no significant mitral regurgitation and normal LV systolic function. LVEDP was mildly elevated at 21 mmHg. Risks and benefits of surgical revascularization were reviewed and patient has agreed to surgical intervention. Today he underwent a
CABG x 3 with a left atrial appendage exclusion. There were no complications, and the patient was transferred to the CVICU postoperatively with Sociology Research Assistant services consulted for additional management/recommendations.
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
Impression:
#MV-CAD s/p CABG x 3 with left atrial appendage exclusion (POD #0)
#Acute anemia due to above
#Acute thrombocytopenia due to above
#Acute respiratory failure with hypercapnia + hypoxia due to recent anesthesia
#Hyperglycemia (mild) � HbA1c: 5.6 on 12/01/2024
#Active tobacco use disorder
#GERD
#Hypertension
#Naty/depression
Plan:
Patient had been extubated earlier this afternoon and is now on BiPAP given acute hypercapnic respiratory failure
Continue trending pH + pCO2 with serial blood gases to assure that the pCO2 is improving
As long as pH remains >7.35 with the next pCO2 <50, then would give the patient a break from BiPAP and consider using BiPAP again tonight with sleep. I will recheck a blood gas tomorrow morning
Maintain SpO2 >90-94%
prn nebulized bronchodilators - not currently bronchospastic
Encourage incentive spirometer q1hr while awake
Patient did spike fevers overnight with Tmax 101.3 �F
He had been receiving Ancef but this was usual postoperative antibiotic
UA on admission from yesterday shows no evidence for UTI
CXR from today shows bibasilar opacities concerning for subsegmental atelectasis, however in the setting of his fevers, would consider starting Unasyn with a set of blood cultures sent prior to starting
He does have a white count of 15.9 today; continue to trend WBC and trend temperature curve
If he spikes another fever then would treat and harrington-Cx (without re-ordering blood Cx if already sent within last 24 hrs); he is not producing phlegm hence no need for sputum culture at this time
Maintain MAP>65
Replete electrolytes with K>4, Mg>2
Monitor chest tube output (mediastinal chest tubes x 2 + left pleural chest tube x 1)
Monitor hemoglobin
Monitor platelet count and coags
Transfuse blood products as needed to maintain Hb>7g/dL, plt>50k (given post-operative status)
CT surgery managing chest tubes
Monitor blood sugar to maintain euglycemia with goal BG 110-140
Insulin drip per protocol - being weaned off
Aspiration precautions
DVT prophylaxis
Early nutrition
Early mobilization
Patient is being downgraded to CVICU�telemetry status. Given the patient fevers, Sociology Research Assistant/Pulmonary services will continue to briefly follow along.
Total time spent today was 58 minutes for this encounter. Time includes reviewing laboratory test/imaging results, reviewing pertinent medical records, obtaining and reviewing medical history, performing an appropriate exam, ordering medications,
tests and procedures. Time also includes documentation of this encounter, coordinating patient care and communicating with other healthcare professionals. Total time does not include separately billed tests performed on this date of service.
Subjective Dataa
Subjective Data
Date of Service:
Date of Service: December 16, 2024
Chief Complaint: Sociology Research Assistant Follow Up
Subjective:
Patient was seen and evaluated this morning. Currently doing well. Insulin drip is being weaned off. Current heart rate 59, BP 106/55 and saturating 93% on 1 L/min nasal cannula. He denies SOB although he does feel a little tight in his chest.
He says that he was smoking prior to this admission and he plans to stop after he gets out. Febrile overnight into this morning with Tmax 101.3 �F. Currently denies chest pain, CLARK, or nausea.
Review of Systems
General: Other (Negative unless mentioned above)
Objective Data
Data Reviewed
Vital Signs / I&O / Oxygen:
Vital Signs
Temp Pulse Resp BP Pulse Ox
98.7 F 64 18 111/56 97
12/16/24 08:50 12/16/24 09:00 12/16/24 08:50 12/16/24 09:00 12/16/24 09:28
Intake and Output
12/15/24 12/16/24 12/17/24
06:59 06:59 06:59
Intake Total 1579.9 / 1589.9 31.2 / 31.2
Output Total 1455 / 1515 110 / 110
Balance 124.9 / 74.9 -78.8 / -78.8
SaO2 [CPAP/PSV] 98
SaO2 [SIMV] 98
SaO2 97
Nasal Cannula flow liters per 1
minute
Physical Exam
General: Respiratory Distress (negative), Comfortable, T Max (101.3 �F), Chills (negative) and Sweats (negative)
HEENT: Normocephalic and Anicteric
Cardiovascular: S1-S2 and Peripheral Edema (negative)
Respiratory: Wheeze (negative), Crackles (negative), Rhonchi (negative) and Non-Labored Respirations
GI: Soft, Non Distended, Non Tender and Normal Bowel Sounds
Neurology: AO x 3 and Tremors (negative)
Skin: Warm, Dry, Cyanosis (negative) and Jaundice (negative)
Labs/Micro/Reports
Lab Data
12/16/24 03:13
12/16/24 03:13
Laboratory Results
12/15/24 12/15/24 12/15/24
11:23 13:42 15:28
PT 16.6 H
INR 1.32
APTT 27.7
pH 7.34 L 7.29 L 7.38
pCO2 47 56 H 46
pO2 161 H 96 90
HCO3 25.4 26.9 27.2
O2 Delivery Level
[2024-12-16] MEDS: VITAMIN C 500 MG PO (08:39)
[2024-12-16] MEDS: LOPRESSOR 12.5 MG PO ×2 (08:39→20:41)
[2024-12-16] MEDS: NEURONTIN 100 MG PO ×3 (08:39→21:11)
[2024-12-16] MEDS: MAGNESIUM OXIDE 500 MG PO ×2 (08:39→20:40)
[2024-12-16] MEDS: PROTONIX 40 MG PO (08:39)
[2024-12-16] MEDS: LIPITOR 40 MG PO (08:39)
[2024-12-16] MEDS: LOW STRENGTH ASPIRIN 81 MG PO (08:39)
[2024-12-16] MEDS: FEOSOL 325 MG PO (08:39)
[2024-12-16] MEDS: PLAVIX 75 MG PO (08:39)
[2024-12-16] MEDS: SENOKOT-S 1 TABLET PO ×2 (08:39→20:41)
[2024-12-16] MEDS: LIDOCAINE 4% PATCH 1 PATCH TOPICAL (08:40)
[2024-12-16] MEDS: BACTROBAN 2% OINTMENT 1 APPLIC NASAL ×2 (08:40→20:41)
[2024-12-16] MEDS: FLEXERIL 5 MG PO ×2 (08:44→18:40)
[2024-12-16] MEDS: ROXICODONE 5 MG PO ×2 (08:44→14:58)
--- NOTE | 2024-12-16 08:45 | PTCARENOTE ---
Assumed care of patient at 0700. Pt is awake, alert, and oriented. Pt with complaints of pain, PRN Roxicodone administered for relief. Pt remains SR HR 63 BP 115/62 MAP 77. Epicardial V wire in place set to 80/8/4. Pulse oximetry 96% on 1L nasal
cannula. Mediastinal chest tubes x2 and left pleural chest tube in place, no sign of air leak, drainage serosanguineous. Pt tolerating clear liquid diet. Sotomayor catheter remains in place draining yellow urine. Midsternal incision approximated with
surgical adhesive. Right groin puncture approximated with surgical adhesive. Right leg incision with valentine wrap in place. Right IJ cordis in place with KVO. Remains on insulin gtt per glycemic protocol. Pt OOB in chair with call moreland within reach.
[2024-12-16 09:00] LABS: Glucose - Point of Care 100 mg/dl (70-99)
[2024-12-16] MEDS: NSS IV (09:37)
--- NOTE | 2024-12-16 10:02 | W.PN.ANS.POP ---
Anesthesia Post Operative
- Anesthesia Post Op Note
Vital Signs Stable-See Nursing Note: Yes
Airway Patent: Yes
Adequate Pain Control: Yes
Change in Mental Status: No
Current Postoperative Nausea & Vomiting: No
Anesthesia Complications: No
General Anesthetic Recall: No
Unplanned Admission: No
Post Op Hydration Adequate: Yes
[2024-12-16 11:46] LABS: Glucose - Point of Care 127 mg/dl (70-99)
[2024-12-16] MEDS: DILAUDID 0.25 MG IV ×2 (11:54→20:40)
--- NOTE | 2024-12-16 12:30 | PTCARENOTE ---
Pt ambulated in layton with cardiac rehab and again with RN, tolerated well. Pleural chest tube d/c'd per order. Pt remains SR with HR 60's. BP 115/60 MAP 76. Pulse oximetry 88% on room air. Pulse oximetry 96% on 2L nasal cannula.
[2024-12-16] MEDS: DUONEB 3 ML INH (12:38)
[2024-12-16 12:59] LABS: Glucose - Point of Care 101 mg/dl (70-99)
--- NOTE | 2024-12-16 13:28 | W.PN.CARDCBS ---
Addendum entered and electronically signed by Sage Pfeiffer DO 12/16/24 14:39:
I saw and examined the patient.
The Sewing Machine Operator Zipper's note was reviewed and I agree with the note.
Comment:
Plan:
Cont post op care
Remains sinus
Heart rate and blood pressure stable off pressors.
Discussed with family at bedside.
Original Note:
Today's Communication / Plan
-
continue post op care
in SR
Impression / Plan
-
Primary Electromechanic: Dr. Bailey of [facility]
Assessment:
MV CAD s/p CABG x3 In situ DAVIDSON to LAD, Ao to RSVG to OM 1, Ao to RSVG to distal RCA, KSENIA clip 12/15/24
HTN
Hyperlipidemia
Tobacco use
GERD
Anxiety/depression
MERRY 12/15/24: EF 59%, no RWMA, grossly normal cardiac valves, normal KSENIA, severe atheromatous disease of aortic arch
Plan:
-s/p CABG x3 In situ DAVIDSNO to LAD, Ao to RSVG to OM 1, Ao to RSVG to distal RCA, KSENIA clip 12/15/24
-off pressors
-EKG SR with possible pericarditis
-hgb 11.8. continue asa, plavix
-continue post op care
-continue OOB/IS
-smoking cessation
-d/w patient and at bedside. d/w nursing
Progress Note - Electromechanic
Subjective
Date of Service: December 16, 2024
reports remains with pain
Objective
Labs:
12/16/24 03:13
12/16/24 03:13
Labs
Hgb 11.8 g/dL (13.0-18.0) L 12/16/24 03:13
Hct 34.4 % (39.0-52.0) L 12/16/24 03:13
Plt Count 138 10^3/uL (130-400) 12/16/24 03:13
PT 16.6 Sec (11.4-14.6) H 12/15/24 11:23
INR 1.32 12/15/24 11:23
APTT 27.7 Sec (23.4-35.0) 12/15/24 11:23
Sodium 139 mmol/L (135-145) 12/16/24 03:13
Potassium 4.6 mmol/L (3.5-5.1) 12/16/24 03:13
BUN 23 mg/dl (9-20) H 12/16/24 03:13
Creatinine 1.0 mg/dL (0.7-1.3) 12/16/24 03:13
Glucose 92 mg/dl (70-99) 12/16/24 03:13
Vital Signs and I&O:
Vital Signs
Temp Pulse Resp BP Pulse Ox
99.3 F 60 18 115/60 95
12/16/24 12:55 12/16/24 13:15 12/16/24 12:55 12/16/24 12:28 12/16/24 12:55
Vital Signs
Temp Pulse Resp BP Pulse Ox
99.3 F 60 18 115/60 95
12/16/24 12:55 12/16/24 13:15 12/16/24 12:55 12/16/24 12:28 12/16/24 12:55
Intake & Output
12/14/24 12/15/24 12/16/24 12/17/24
07:59 07:59 07:59 07:59
Intake Total 1589.9 / 1600.4 65.0 / 65.0
Output Total 1515 / 1565 255 / 255
Balance 74.9 / 35.4 -190.0 / -190.0
Physical Exam
Physical Exam
GEN: No distress, awake, alert, oriented x3. sitting in chair
HEENT: supple, anicteric, mmm, eomi
LUNGS: Diminished BS B/L, no wheezes
CV: Reg, S1/S2, no murmur
ABD: soft, BS+, NT/ND
EXT: No cyanosis, clubbing. trace edema of B/L LE
NEURO: Gross non-focal
SKIN: Warm, pink, dry. No rash. Sternotomy dressing c/d/i.
[2024-12-16] MEDS: TYLENOL 1000 MG PO ×2 (14:57→21:11)
[2024-12-16] MEDS: FERRLECIT 110 MG IV (14:58)
[2024-12-16] MEDS: LASIX 40 MG IV (16:37)
[2024-12-16] MEDS: PACERONE 200 MG PO ×2 (16:38→21:12)
--- NOTE | 2024-12-16 16:45 | PTCARENOTE ---
Insulin gtt d/c'd per order. Pt assisted back to bed for afternoon rest. Pt remains SR HR 60's. BP 106/59 MAP 74. Pulse oximetry 93% on 2L nasal cannula. Pt received 40mg IV Lasix per order.
--- NOTE | 2024-12-16 21:00 | PTCARENOTE ---
Assumed care of pt from kimmie RN. Walking rounds completed. Pt is AAOx3. Resting in bed at this time. Pt is SR on the tele monitor. HR 70s. Temporary epicardial v-wire set to backup VVI . BP stable. B/L DP pulses weak. Trace B/L LE edema.
Pt on 2 L NC. POX 92%. Mediastinal CTx2 to -20 suction, no airleak noted, and output WNL. Abdomen soft/nontender. +BSx4. Sotomayor catheter intact and draining yellow urine. All surgical sites stable. Right IJ cordis and PIVx1 intact. Pt repositioned in
bed. Denture care provided. See MAR for pain medication administration. Call moreland within reach.
[2024-12-17] VITALS (21 sets, daily range): BP systolic 95–165; BP diastolic 54–77; PULSE 2–81; O2SAT 90–92; BMI 28.3
--- NOTE | 2024-12-17 00:27 | PTCARENOTE ---
Pt reassessed. Pt SR on the tele monitor. HR 60s. Temporary epicardial v-wires intact. Settings unchanged. Pt on Bipap machine. POX 93%. Mediastinal CTx2 assessment unchanged. Sotomayor catheter intact and draining yellow urine. All surgical sites
stable. Call moreland within reach.
[2024-12-17 04:28] LABS: Venous Blood Gas B.E. 3.3 mmol/L (-4 to +4); Venous Blood Gas HCO3 29.9 mmol/L (22-27); Venous Blood Gas O2 Sat % 96.2 %; Venous Blood Gas pCO2 53 mmHg (35-48); Venous Blood Gas pH 7.36 (7.32-7.43); Venous Blood Gas pO2 77 mmHg (30-50)
[2024-12-17 04:42] LABS: Hemoglobin 11.9 g/dL (13.0-18.0); Mean Corpuscular Hgb 31.2 pg (27.0-31.0); Mean Corpuscular Volume 91.6 fL (80.0-94.0); Mean Platelet Volume 10.1 fL (7.4-10.4); Platelet Count 134 10^3/uL (130-400); Red Blood Cell Count 3.82 10^6/uL (4.70-6.10); Red Cell Dist. Width 14.4 % (11.5-14.5); White Blood Cell Count 14.5 10^3/uL (4.8-10.8)
--- NOTE | 2024-12-17 04:43 | PTCARENOTE ---
No acute changes in assessment. SR on the tele monitor. HR 60-70s. BP stable. Pt now on 2 L NC. POX 96%. Mediastinal CTx2 assessment unchanged. Sotomayor catheter intact and draining yellow urine. No c/o pain at this time - pt states they are
comfortable. Labs drawn and sent. Call moreland within reach.
[2024-12-17 05:00] LABS: Blood Urea Nitrogen 30 mg/dl (9-20); Calcium 8.3 mg/dl (8.4-10.2); Carbon Dioxide 30 mmol/L (22-30); Chloride 106 mmol/L (98-107); Estimated Creatinine Clearance 63 ml/min; Glucose 116 mg/dl (70-99); Magnesium 2.3 mg/dl (1.6-2.3); Phosphorus 2.9 mg/dl (2.5-4.5); Potassium 4.3 mmol/L (3.5-5.1); Sodium 137 mmol/L (135-145); eGFR > 60.00
[2024-12-17] MEDS: TYLENOL 1000 MG PO ×3 (06:19→21:25)
--- NOTE | 2024-12-17 07:24 | W.PN.CT ---
Today's Communication / Plan
-
-pod #2
-no issues overnight. Hemodynamically and neurologically intact
-on bipap 04/11 overnight for CO2 retention postop. VBG this am on 2L NC is 7.36/53/77/29.9/96.2. Appreciate Pulmonary input
-pt is a current smoker
-tmax 99.5 last 24 hrs (101.3 prior to that), wbc trended down from 15.9 to 14.5 - follow
-follow Cr - 1.1 today (1.0 preop)
-encourage IS, OOB
-started Mucinex for cough
-appreciate everyone's input
Assessment / Plan
-
Assessment:
-S/P Standard sternotomy/CABG x 3 (In situ DAVIDSON to LAD, Ao to RSVG to OM 1, Ao to RSVG to distal RCA)/Left atrial appendage exclusion [35 mm device]/ Endoscopic vein harvesting of right lower extremity, by Dr. Viera, 12/15/24, pod#2
-Difficult judd insertion intraop S/P Urethral dilation and calibration (Raghav male dilators)/Meatotomy/Flexible cystoscopy/Urethral dilation with S-curve dilators (over a guidewire)/Complicated catheter placement (16-[place] tip), by
Dr Pruett of Urology, 12/15/24
-Multivessel coronary artery disease
-Unstable angina
-LVEF 59% per intraop MERRY
-Hypertension
-Hyperlipidemia
-Preop bradycardia (47-52 bpm)
-Anxiety disorder
-Depression/Anxiety
-GERD
-Current tobacco abuse (smokes several cigarettes per day x 30 years)
-Former ETOH (quit )
-History of BXO of the glans penis
-Meatal stenosis and scarring
-Difficult Judd catheter placement
-S/P L shoulder repair, 2018
-S/P R rotator cuff repair, 2011
-Acute postop blood loss/Anemia (stable without blood transfusion)
-Acute postop thrombocytopenia (transfused 1 {5 pk} plts)
-Acute postop atelectasis
-Acute postop fever, likely d/t atelectasis
-Acute postop hypovolemia with subsequent hypervolemia
-Intraop difficult judd insertion S/P Urethral dilation/calibration and judd insertion by Urology
Discussed patient care with: Nursing and Care Team
Subjective
Procedure
S/P Standard sternotomy/CABG x 3 (In situ DAVIDSON to LAD, Ao to RSVG to OM 1, Ao to RSVG to distal RCA)/Left atrial appendage exclusion [35 mm device]/ Endoscopic vein harvesting of right lower extremity, by Dr. Viera, 12/15/24
-
Date of Service: December 17, 2024
Objective Data
-
Lab Results
12/17/24 04:16
12/17/24 04:16
PT 16.6 Sec (11.4-14.6) H 12/15/24 11:23
INR 1.32 12/15/24 11:23
APTT 27.7 Sec (23.4-35.0) 12/15/24 11:23
Vital Signs
Vital Signs
Temp Pulse Resp BP Pulse Ox
98 F 80 18 123/67 93
12/17/24 03:42 12/17/24 07:00 12/17/24 03:42 12/17/24 06:18 12/17/24 07:00
CT Intake/Output/Weight
12/16/24 12/17/24 12/17/24
18:59 06:59 18:59
Intake Total 145.0 / 255.0 110 / 255.0
Output Total 1420 / 2150 730 / 2150
Balance -1275.0 / -1895.0 -620 / -1895.0
SaO2: 93
Physical Exam
-
General: Awake and AOx3
Cardiovascular: Regular rate & rhythm, No Murmurs and No Rub
Respiratory: Decreased Breath Sounds
Sternum: Stable
Incision: Clean, Dry and Intact
Extremities: Other (trace edema b/l)
Abdomen: soft, nontender, nondistended, + bowel sounds
Data Reviewed
-
Lab Results: Results Reviewed
Medications: Active Meds Reviewed
Chest X-Ray: Report Reviewed and Image Reviewed
ECG: Report Reviewed and Image Reviewed
[2024-12-17] MEDS: SPIRIVA RESPIMAT 2.5 MCG 2 PUFF INH (07:33)
[2024-12-17] MEDS: MAGNESIUM OXIDE 500 MG PO ×2 (08:40→19:58)
[2024-12-17] MEDS: PROTONIX 40 MG PO (08:40)
[2024-12-17] MEDS: SENOKOT-S 1 TABLET PO ×2 (08:40→19:58)
[2024-12-17] MEDS: VITAMIN C 500 MG PO (08:40)
[2024-12-17] MEDS: LASIX 40 MG IV ×2 (08:40→17:28)
[2024-12-17] MEDS: PLAVIX 75 MG PO (08:40)
[2024-12-17] MEDS: KCL 20 MEQ PO ×2 (08:40→21:25)
[2024-12-17] MEDS: NEURONTIN 100 MG PO ×3 (08:40→21:25)
[2024-12-17] MEDS: LIPITOR 40 MG PO (08:41)
[2024-12-17] MEDS: LOPRESSOR 12.5 MG PO ×2 (08:41→19:59)
[2024-12-17] MEDS: LIDOCAINE 4% PATCH 1 PATCH TOPICAL (08:41)
[2024-12-17] MEDS: LOW STRENGTH ASPIRIN 81 MG PO (08:41)
[2024-12-17] MEDS: FLEXERIL 5 MG PO (08:41)
[2024-12-17] MEDS: PACERONE 200 MG PO ×3 (08:41→21:25)
[2024-12-17] MEDS: MUCINEX 600 MG PO ×2 (08:41→19:58)
[2024-12-17] MEDS: FEOSOL 325 MG PO (08:41)
[2024-12-17] MEDS: BACTROBAN 2% OINTMENT 1 APPLIC NASAL ×2 (08:42→19:58)
--- NOTE | 2024-12-17 08:45 | PTCARENOTE ---
Assumed care of patient at 0700. Pt is awake, alert, and oriented. Patient with complaints of midsternal pain, PRN Flexeril administered. Pt remains SR with HR 74. BP 120/60 MAP 76. Epicardial V wire in place set to 30/8/4. Pulse oximetry 94% on 1L
nasal cannula. Mediastinal chest tubes in place, no sign of air leak or crepitus, drainage serosanguineous. Pt tolerating PO diet. Sotomayor catheter remains in place draining yellow urine. Midsternal incision approximated with surgical adhesive. Right
leg and right groin puncture approximated with surgical adhesive. Right IJ cordis remains in place with KVO. Pt currently OOB in chair resting comfortably with call moreland within reach.
--- NOTE | 2024-12-17 10:17 | W.PN.UPDATE ---
Update Note
Progress Note Update
Patient has not required pacing wires. There has been no bradycardia, arrhythmias, complete heart block, or significant pauses.
Site was cleansed with CHG thoroughly
1 ventricular epicardial pacing wires were pulled/cut at the skin. Bedrest x1 hour and VS [id number] x 4. mediastinal CTs can be removed 1 hr post.
Ele GRIMALDO
Cardiac Surgery
--- NOTE | 2024-12-17 11:31 | W.PN.INTV ---
Today's Communication / Plan
Recommendations
Up OOB as tolerated
Monitor for fever recurrence
Maintain MAP >65
Goal BG 110�140
Encouraged incentive spirometer
Given his continued cough with increasing opacification in medial RLL/RML and continued retrocardiac opacity, would start Unasyn and complete a 7 day course. Prior to discharge he can be transitioned to Augmentin to complete the course.
Outpatient pulmonary office follow-up will be arranged with full PFTs.
No additional recommendations at this time. Pulmonary service will now sign off. Please reconsult if there are any additional questions/concerns, or if patient's respiratory status deteriorates.
Assessment
-
Assessment: 69-year-old male active cigarette smoker with a past medical history of multivessel CAD, hypertension, anxiety/depression and GERD who presents for elective CABG. Patient known to the cardiothoracic surgery service with last visit on
12/02/[address] Viera. On 11/25/2024 he had a left heart catheterization due to 2 months of exertional angina with a stress test suggesting RCA + LAD territory perfusion abnormalities. Left heart cath showed severe multivessel obstructive CAD
with no significant mitral regurgitation and normal LV systolic function. LVEDP was mildly elevated at 21 mmHg. Risks and benefits of surgical revascularization were reviewed and patient has agreed to surgical intervention. Today he underwent a
CABG x 3 with a left atrial appendage exclusion. There were no complications, and the patient was transferred to the CVICU postoperatively with [facility] services consulted for additional management/recommendations.
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
Impression:
#MV-CAD s/p CABG x 3 with left atrial appendage exclusion (POD #2)
#Acute anemia due to above
#Acute thrombocytopenia due to above
#Acute respiratory failure with hypercapnia + hypoxia due to recent anesthesia
#Hyperglycemia (mild) � HbA1c: 5.6 on 12/01/2024 - glucose now in euglycemic range
#Active tobacco use disorder
#GERD
#Hypertension
#Anxiety/depression
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
Plan:
Patient was extubated on 12/15 to nasal cannula, and is currently on 1 L/min saturating 94% and breathing however has a cough that is occasional and slightly bothersome with green/yellow phlegm production
He initially required BiPAP after extubation due to mild acute hypercapnic respiratory failure
Blood gas continue to be monitored and was checked again this morning showing stable mild hypercapnia with pH 7.36, pCO2 53; he does not use CPAP or BiPAP at home
Consider occasional blood gases in the morning to assure that pH + pCO2 remain stable; of note, serum bicarbonate level was 31 on 12/01/2024, hence he likely has a component of chronic hypercapnic respiratory failure
Maintain SpO2 >90-94%
prn nebulized bronchodilators q4hr
Encourage incentive spirometer q1hr while awake
He also has been a tobacco smoker, quit smoking once he was hospitalized here. I encouraged him to continue to remain abstinent from tobacco use. Given his wheezing heard today and significant tobacco use history, he has suspected COPD. I started
Spiriva today - this should be continued upon discharge and outpatient follow-up will also be arranged.
Continue Mucinex to help pulmonary toilet
Patient did spike fevers overnight on 12/15 - 12/16 with Tmax 101.3 �F
On 12/15, there was difficulty with Sotomayor insertion prior to CABG, and urology was consulted intraoperatively. Due to severe meatal stenosis with urethral scarring/narrowing noted on cystoscopy, patient underwent meatal dilation as well as urethral
stricture dilation. 16 [place] Sotomayor catheter (poarch tip) was inserted and will remain through this hospitalization until after discharge.
- Per urology, Sotomayor catheter should maintain for 7-10 days prior to removal and this will be coordinated as an outpatient
Urethral catheter manipulation may have caused transient bacteremia with increased inflammation and perhaps this is what led to the fevers seen yesterday
He had been receiving Ancef but this was usual postoperative antibiotic
UA on admission showed no evidence for UTI
CXR from 12/16 showed bibasilar opacities concerning for subsegmental atelectasis, however there is opacification which was more dense now in the medial right lower lobe as well as retrocardiac opacification, concerning for pneumonia. Rec'd to start
Unasyn today, and check a respiratory culture in addition to urine antigens for Legionella/strep pneumonia & 1 set of blood cultures before Abx
He does have a white count of 14.5 today from 22/03 yesterday; continue to trend WBC and trend temperature curve
Maintain MAP>65
Replete electrolytes with K>4, Mg>2
Mediastinal chest tubes x 2 removed today; left pleural chest tube x 1 removed yesterday)
Monitor hemoglobin
Monitor platelet count and coags
Transfuse blood products as needed to maintain Hb>7g/dL, plt>50k (given post-operative status)
Monitor blood sugar to maintain euglycemia with goal BG 110-140
Insulin drip now off since yesterday; recommend to use ISS to keep BG as goal above
Aspiration precautions
DVT prophylaxis
Early nutrition
Early mobilization
Patient has been downgraded to CVICU�telemetry yesterday, and he remains stable. However given his continued cough with increasing opacification in medial RLL/RML and continued retrocardiac opacity, would start Unasyn and give a 7 day course.
Prior to discharge he can be transitioned to Augmentin to complete the course.
Outpatient pulmonary office follow-up will be arranged with full PFTs.
No additional recommendations at this time. Pulmonary service will now sign off. Thank you for allowing us to be involved in the care of this patient. Please reconsult if there are any additional questions/concerns, or if patient's respiratory
status deteriorates.
Total time spent today was 39 minutes for this encounter. Time includes reviewing laboratory test/imaging results, reviewing pertinent medical records, obtaining and reviewing medical history, performing an appropriate exam, ordering medications,
tests and procedures. Time also includes documentation of this encounter, coordinating patient care and communicating with other healthcare professionals. Total time does not include separately billed tests performed on this date of service.
Subjective Dataa
Subjective Data
Date of Service:
Date of Service: December 17, 2024
Chief Complaint: [facility] Follow Up
Subjective:
Patient was seen and evaluated this morning. He has remained afebrile since yesterday morning. Currently sitting in the chair no acute distress. Patient's is at bedside. Patient's heart rate currently 67, BP 158 and breathing comfortably on
1 L/min nasal cannula saturating 95%. Still has a cough with no change compared to yesterday with occasional phlegm production which is green/yellow. Currently denies chest pain, CLARK, nausea, fevers or chills.
Review of Systems
General: Other (Negative unless mentioned above)
Objective Data
Data Reviewed
Vital Signs / I&O / Oxygen:
Vital Signs
Temp Pulse Resp BP Pulse Ox
98.3 F 80 18 103/61 95
12/17/24 12:15 12/17/24 14:45 12/17/24 12:15 12/17/24 11:45 12/17/24 12:15
Intake and Output
12/16/24 12/17/24 12/18/24
06:59 06:59 06:59
Intake Total 1579.9 / 1589.9 255.0 / 255.0 40 / 40
Output Total 1455 / 1515 2150 / 2150 1335 / 1335
Balance 124.9 / 74.9 -1895.0 / -1895.0 -1295 / -1295
SaO2 [CPAP/PSV] 98
SaO2 [SIMV] 98
SaO2 95
Nasal Cannula flow liters per 1
minute
Physical Exam
General: Respiratory Distress (negative), Comfortable, Chills (negative) and Sweats (negative)
HEENT: Normocephalic and Anicteric
Cardiovascular: S1-S2 and Peripheral Edema (negative)
Respiratory: Wheeze ([place] upon expiration bilaterally), Crackles (negative), Rhonchi (negative), Non-Labored Respirations and Stridor (negative)
GI: Soft, Non Distended, Non Tender and Normal Bowel Sounds
Neurology: AO x 3 and Tremors (negative)
Skin: Warm, Dry, Cyanosis (negative) and Jaundice (negative)
Labs/Micro/Reports
Lab Data
12/17/24 04:16
12/17/24 04:16
[2024-12-17] MEDS: NSS 500 IV (12:16)
--- NOTE | 2024-12-17 12:45 | PTCARENOTE ---
V wire pulled by CT RANDALL, Hiral. Pt maintained on bedrest x1 hr, BP monitored. Minimal output from chest tubes. Mediastinal chest tubes d/c'd per order. Pt ambulated entire unit and tolerated well.
--- NOTE | 2024-12-17 14:07 | CM ---
CM following for DC planning needs.
Attempted to meet w/ patient, patient sleeping soundly.
Reviewed DC plans for home w/ [facility] Transitional [facility] RN.
Will cont. to follow.
--- NOTE | 2024-12-17 15:33 | W.PN.CARDCBS ---
Addendum entered and electronically signed by Lionel Wells MD 12/17/24 17:36:
Patient states he feels well, says he may be able to go home tomorrow, offers no complaints
PMH/PSH: As documented below
Current meds: Reviewed
130/59, pulse 82, head neck exam unremarkable, lungs are clear, incisions intact, regular rate and rhythm without rub, abdomen benign, chest tubes are out, extremities without significant edema, leg incision well-healed
Hemoglobin is 11.9, BUN and creatinine are 30 and 1.1
Chest x-ray today small effusion left base, chest tubes present
ECG yesterday: Sinus rhythm, septal [place]
Telemetry: Normal sinus rhythm
Impression:
As documented below by Melissa sosa. Reviewed in detail and agree, unless otherwise specified below.
CABG x 3 with left atrial appendage clip 12/15/2024
Hypertension
Hyperlipidemia
Tobacco use
GERD
Anxiety/depression
Plan:
He looks very well postop day 2.
Appreciate efforts of CT surgery.
Continue supportive care.
Anticipate discharge in 24 to 48 hours
Original Note:
Today's Communication / Plan
-
continue post op care
in SR
Impression / Plan
-
Primary Punch Operator: Dr. Bailey of [facility]
Assessment:
MV CAD s/p CABG x3 In situ DAVIDSON to LAD, Ao to RSVG to OM 1, Ao to RSVG to distal RCA, KSENIA clip 12/15/24
HTN
Hyperlipidemia
Tobacco use
GERD
Anxiety/depression
MERRY 12/15/24: EF 59%, no RWMA, grossly normal cardiac valves, normal KSENIA, severe atheromatous disease of aortic arch
Plan:
-s/p CABG x3 In situ DAVIDSON to LAD, Ao to RSVG to OM 1, Ao to RSVG to distal RCA, KSENIA clip 12/15/24
-with some temps in last 36 hours. appears to be improving, follow.
-required bipap overnight for CO2 retention
-CTs out
-remains with judd given urinary retention
-continue asa, plavix. hgb 11.9
-in SR on review of tele. continue lopressor, amiodarone
-continue post op care
-continue OOB/IS
-smoking cessation
-d/w patient and at bedside.
Progress Note - Punch Operator
Subjective
Date of Service: December 17, 2024
reports some abd pain this afternoon, improving with flatus
Objective
Labs:
12/17/24 04:16
12/17/24 04:16
Labs
Hgb 11.9 g/dL (13.0-18.0) L 12/17/24 04:16
Hct 35.0 % (39.0-52.0) L 12/17/24 04:16
Plt Count 134 10^3/uL (130-400) 12/17/24 04:16
PT 16.6 Sec (11.4-14.6) H 12/15/24 11:23
INR 1.32 12/15/24 11:23
APTT 27.7 Sec (23.4-35.0) 12/15/24 11:23
Sodium 137 mmol/L (135-145) 12/17/24 04:16
Potassium 4.3 mmol/L (3.5-5.1) 12/17/24 04:16
BUN 30 mg/dl (9-20) H 12/17/24 04:16
Creatinine 1.1 mg/dL (0.7-1.3) 12/17/24 04:16
Glucose 116 mg/dl (70-99) H 12/17/24 04:16
Vital Signs and I&O:
Vital Signs
Temp Pulse Resp BP Pulse Ox
98.3 F 80 18 103/61 95
12/17/24 12:15 12/17/24 14:45 12/17/24 12:15 12/17/24 11:45 12/17/24 12:15
Vital Signs
Temp Pulse Resp BP Pulse Ox
98.3 F 80 18 103/61 95
12/17/24 12:15 12/17/24 14:45 12/17/24 12:15 12/17/24 11:45 12/17/24 12:15
Intake & Output
12/15/24 12/16/24 12/17/24 12/18/24
07:59 07:59 07:59 07:59
Intake Total 1589.9 / 1600.4 245.0 / 265.0 40 / 40
Output Total 1515 / 1565 2090 / 2165 1335 / 1335
Balance 74.9 / 35.4 -1845.0 / -1900.0 -1295 / -1295
Physical Exam
Physical Exam
GEN: No distress, awake, alert, oriented x3. sitting in chair
HEENT: supple, anicteric, mmm, eomi
LUNGS: Diminished BS B/L, no wheezes
CV: Reg, S1/S2, no murmur
ABD: soft, BS+, NT/ND
EXT: No cyanosis, clubbing. trace edema of B/L LE
NEURO: Gross non-focal
SKIN: Warm, pink, dry. No rash. Sternotomy dressing c/d/i.
[2024-12-17] MEDS: FERRLECIT 110 MG IV (15:50)
[2024-12-17] MEDS: ROXICODONE 5 MG PO (16:04)
--- NOTE | 2024-12-17 16:30 | PTCARENOTE ---
Pt remains SR with HR 80's-90's. BP 130/59 MAP 80. Pulse oximetry 95% on 1L nasal cannula. Pt with complaints of increased pain, PRN Roxicodone administered for relief. Pt ambulated in layton with RN, tolerated well.
[2024-12-17 18:11] LABS: Blood Urea Nitrogen 25 mg/dl (9-20); Carbon Dioxide 30 mmol/L (22-30); Chloride 103 mmol/L (98-107); Estimated Creatinine Clearance 69 ml/min; Glucose 116 mg/dl (70-99); Potassium 3.9 mmol/L (3.5-5.1); Sodium 134 mmol/L (135-145); eGFR > 60.00
--- NOTE | 2024-12-17 20:00 | PTCARENOTE ---
Assumed care of patient at 1900. AOx3, mild MS pain that is tolerable, declines pain medications at this time. SR on CM, heart tones audible, trace LE edema, pulses palpable. Lungs diminished, on 2LNC, intermittent moist nonproductive cough. Abdomen
SNT, passing flatus, tolerating PO intake. Coude Sotomayor catheter urology determination with yellow urine, sanguineous/purulent meatal discharge, pt c/o pain at the catheter tip. MS COSTA CDI with Dermabond, RSVG and R groin COSTA Dermabond CDI. RIJ
Cordis with KVO, dressing intact, PIVx1. Patient ambulated in the layton with standby assistance, tolerated. Placed into bed after CHG wipes. Patient updated on POC, in agreement, call moreland within reach, assessment of needs ongoing.
[2024-12-18] VITALS (13 sets, daily range): BP systolic 90–146; BP diastolic 52–68; PULSE 68; O2SAT 91–92; BMI 28.0
--- NOTE | 2024-12-18 00:45 | PTCARENOTE ---
No acute issues, patient sleeping between care, pain acceptable level, low grade temp 100.1, CVPA aware, monitor.
--- NOTE | 2024-12-18 04:00 | PTCARENOTE ---
Labs drawn and sent, patient awake and reports being unable to sleep. Pain 2/10 at this time. POC for AM care discussed, patient in agreement, assessment of needs ongoing.
[2024-12-18 04:39] LABS: Hematocrit 32.4 % (39.0-52.0); Mean Corpuscular Hgb 31.3 pg (27.0-31.0); Mean Platelet Volume 10.4 fL (7.4-10.4); Platelet Count 118 10^3/uL (130-400); Red Blood Cell Count 3.52 10^6/uL (4.70-6.10); Red Cell Dist. Width 14.2 % (11.5-14.5); White Blood Cell Count 10.8 10^3/uL (4.8-10.8)
[2024-12-18 04:55] LABS: Blood Urea Nitrogen 24 mg/dl (9-20); Calcium 8.1 mg/dl (8.4-10.2); Carbon Dioxide 32 mmol/L (22-30); Chloride 104 mmol/L (98-107); Estimated Creatinine Clearance 69 ml/min; Glucose 105 mg/dl (70-99); Magnesium 2.1 mg/dl (1.6-2.3); Sodium 138 mmol/L (135-145); eGFR > 60.00
[2024-12-18] MEDS: TYLENOL 1000 MG PO ×3 (05:34→21:31)
[2024-12-18] MEDS: SPIRIVA RESPIMAT 2.5 MCG 2 PUFF INH (07:38)
--- NOTE | 2024-12-18 07:38 | W.PN.CT ---
Today's Communication / Plan
-
-pod #3
-no issues overnight. Hemodynamically and neurologically intact
-continue Mucinex for cough. Pt is a current smoker
-tmax 100.1 last 24 hrs , wbc trended down from 15.9 to 14.5 to 10.8- follow
-follow Cr - 1.0 today (1.0 preop)
-encourage IS, OOB, ambulate
-appreciate everyone's input
Assessment / Plan
-
Assessment:
-S/P Standard sternotomy/CABG x 3 (In situ DAVIDSON to LAD, Ao to RSVG to OM 1, Ao to RSVG to distal RCA)/Left atrial appendage exclusion [35 mm device]/ Endoscopic vein harvesting of right lower extremity, by Dr. Viera, 12/15/24, pod#3
-Difficult judd insertion intraop S/P Urethral dilation and calibration (Raghav male dilators)/Meatotomy/Flexible cystoscopy/Urethral dilation with S-curve dilators (over a guidewire)/Complicated catheter placement (16-[place] [employer] tip), by
Dr Pruett of Urology, 12/15/24
-Multivessel coronary artery disease
-Unstable angina
-LVEF 59% per intraop MERRY
-Hypertension
-Hyperlipidemia
-Preop bradycardia (47-52 bpm)
-Anxiety disorder
-Depression/Anxiety
-GERD
-Current tobacco abuse (smokes several cigarettes per day x 30 years)
-Former ETOH (quit )
-History of BXO of the glans penis
-Meatal stenosis and scarring
-Difficult Judd catheter placement
-S/P L shoulder repair, 2018
-S/P R rotator cuff repair, 2011
-Acute postop blood loss/Anemia (stable without blood transfusion)
-Acute postop thrombocytopenia (transfused 1 {5 pk} plts)
-Acute postop atelectasis
-Acute postop fever, likely d/t atelectasis
-Acute postop hypovolemia with subsequent hypervolemia
-Intraop difficult judd insertion S/P Urethral dilation/calibration and judd insertion by Urology
Discussed patient care with: Nursing and Care Team
Subjective
Procedure
S/P Standard sternotomy/CABG x 3 (In situ DAVIDSON to LAD, Ao to RSVG to OM 1, Ao to RSVG to distal RCA)/Left atrial appendage exclusion [35 mm device]/ Endoscopic vein harvesting of right lower extremity, by Dr. Viera, 12/15/24
-
Date of Service: December 18, 2024
Objective Data
-
Lab Results
12/18/24 04:21
12/18/24 04:21
PT 16.6 Sec (11.4-14.6) H 12/15/24 11:23
INR 1.32 12/15/24 11:23
APTT 27.7 Sec (23.4-35.0) 12/15/24 11:23
Vital Signs
Vital Signs
Temp Pulse Resp BP Pulse Ox
98.4 F 70 18 103/55 92
12/18/24 04:17 12/18/24 04:17 12/18/24 04:17 12/18/24 04:17 12/18/24 04:17
CT Intake/Output/Weight
12/17/24 12/18/24 12/18/24
18:59 06:59 18:59
Intake Total 110 / 710 600 / 710
Output Total 20095 675 / 2685
Balance -190 / -1974 - /
SaO2: 92
Physical Exam
-
General: Awake and AOx3
Cardiovascular: Regular rate & rhythm, No Murmurs and Rub
Respiratory: Decreased Breath Sounds
Sternum: Stable
Incision: Clean, Dry and Intact
Extremities: No Edema
Abdomen: soft, nontender, + bowel sounds
Data Reviewed
-
Lab Results: Results Reviewed
Medications: Active Meds Reviewed
Chest X-Ray: Report Reviewed and Image Reviewed
ECG: Report Reviewed and Image Reviewed
--- NOTE | 2024-12-18 08:30 | PTCARENOTE ---
Resumed care of patient. Walking rounds completed with previous RN. Pt assessed while he was sitting in the chair. Pt alert and oriented x4. Rates sternal pain 3/10 & penis pain 6/10, refuses pain meds other than flexeril. CHRISTENSEN with equal strength
throughout. Ambulated in the layton 300', tolerated. Denies shortness of breath and nausea. NSR on tele with rates in the 60s-70s. BP 117/55. Heart tones distant. Bilateral radial pulses palpable. Bilateral DP pulses weakly palpable. No edema noted.
POX 95% on 2L NC, titrated to RA, POX 93-94%. Lungs diminished in the bases. IS encouraged-1250mL achieved. Productive cough with bautista sputum. Abdomen soft, round, nontender. Tolerating diet. +BS. +gas. Sotomayor catheter intact draining catracho urine.
Sternal incision approximated with skin glue. Old chest tube sites PUSHER OPERATOR. Right groin puncture site approximated, PUSHER OPERATOR. Right SVG harvest site approximated, COSTA. Right IJ cordis intact infusing NSS KVO. Right AC 18g PIV intact. See MAR for medication
administration. See worklist for complete nursing assessment. Plan of care reviewed and patient in agreement.
[2024-12-18] MEDS: PACERONE 200 MG PO ×3 (08:44→21:31)
[2024-12-18] MEDS: LOPRESSOR 12.5 MG PO ×2 (08:44→20:30)
[2024-12-18] MEDS: FEOSOL 325 MG PO (08:45)
[2024-12-18] MEDS: KCL 40 MEQ PO (08:45)
[2024-12-18] MEDS: MAGNESIUM OXIDE 500 MG PO ×2 (08:45→20:30)
[2024-12-18] MEDS: SENOKOT-S 1 TABLET PO ×2 (08:45→20:30)
[2024-12-18] MEDS: MUCINEX 600 MG PO ×2 (08:45→20:30)
[2024-12-18] MEDS: LASIX 40 MG IV (08:45)
[2024-12-18] MEDS: PLAVIX 75 MG PO (08:45)
[2024-12-18] MEDS: NEURONTIN 100 MG PO ×3 (08:45→21:31)
[2024-12-18] MEDS: PROTONIX 40 MG PO (08:45)
[2024-12-18] MEDS: LOW STRENGTH ASPIRIN 81 MG PO (08:45)
[2024-12-18] MEDS: LIPITOR 40 MG PO (08:45)
[2024-12-18] MEDS: VITAMIN C 500 MG PO (08:45)
[2024-12-18] MEDS: NSS IV (08:46)
[2024-12-18] MEDS: BACTROBAN 2% OINTMENT 1 APPLIC NASAL ×2 (08:46→20:30)
[2024-12-18] MEDS: LIDOCAINE 4% PATCH 1 PATCH TOPICAL (08:51)
[2024-12-18] MEDS: FLEXERIL 5 MG PO (08:51)
[2024-12-18] MEDS: ROXICODONE 5 MG PO ×2 (11:56→18:17)
--- NOTE | 2024-12-18 12:00 | PTCARENOTE ---
Pt reassessed. NSR with rates in the 60s. BP 103/56. POX 92% on RA. Surgical sites stable. Sotomayor draining adequate amounts of clear yellow urine. No acute changes from previous assessment.
[2024-12-18] MEDS: FERRLECIT 110 MG IV (13:20)
--- NOTE | 2024-12-18 14:36 | W.PN.CARDCBS ---
Addendum entered and electronically signed by Robbi Boyer MD 12/18/24 14:54:
I saw and examined the patient.
The SOLE TRIMMER or PA's note was reviewed and I agree with the note.
Comment: General: Well developed, well nourished in NAD.
Neck: Supple, no JVD, HJR, carotids +2 B/L, no bruits bilaterally.
Heart: Non displaced PMI, RRR, no murmurs, No S3, S4, no rubs.
Lungs: Scattered rhonchi
Sternal dressings noted
Extremities: No clubbing, cyanosis or edema bilaterally.
Neuro: Grossly nonfocal, awake, alert and oriented x3.
Stable cardiology status postop. Remains in sinus rhythm
Original Note:
Today's Communication / Plan
-
continue post op care
in SR
Impression / Plan
-
Primary Photo Optics Technician: Dr. Bailey of [facility]
Assessment:
MV CAD s/p CABG x3 In situ DAVIDSON to LAD, Ao to RSVG to OM 1, Ao to RSVG to distal RCA, KSENIA clip 12/15/24
HTN
Hyperlipidemia
Tobacco use
GERD
Anxiety/depression
MERRY 12/15/24: EF 59%, no RWMA, grossly normal cardiac valves, normal KSENIA, severe atheromatous disease of aortic arch
Plan:
-s/p CABG x3 In situ DAVIDSON to LAD, Ao to RSVG to OM 1, Ao to RSVG to distal RCA, KSENIA clip 12/15/24
-fever curve improving. follow
-remains with judd given urinary retention. plan for OP void trial with urology, d/w patient and . Cr stable
-continue asa, plavix. hgb 11
-in SR. continue lopressor, amiodarone
-Prior to admission was on Coreg 12.5 mg twice daily and Norvasc 5 mg twice daily. Follow blood pressures
-continue post op care
-continue OOB/IS
-smoking cessation
-d/w nursing, CT surgery SOLE TRIMMER
Progress Note - Photo Optics Technician
Subjective
Date of Service: December 18, 2024
Feeling better today. Ambulatory around unit
Objective
Labs:
12/18/24 04:21
12/18/24 04:21
Labs
Hgb 11.0 g/dL (13.0-18.0) L 12/18/24 04:21
Hct 32.4 % (39.0-52.0) L 12/18/24 04:21
Plt Count 118 10^3/uL (130-400) L 12/18/24 04:21
PT 16.6 Sec (11.4-14.6) H 12/15/24 11:23
INR 1.32 12/15/24 11:23
APTT 27.7 Sec (23.4-35.0) 12/15/24 11:23
Sodium 138 mmol/L (135-145) 12/18/24 04:21
Potassium 4.0 mmol/L (3.5-5.1) 12/18/24 04:21
BUN 24 mg/dl (9-20) H 12/18/24 04:21
Creatinine 1.0 mg/dL (0.7-1.3) 12/18/24 04:21
Glucose 105 mg/dl (70-99) H 12/18/24 04:21
Vital Signs and I&O:
Vital Signs
Temp Pulse Resp BP Pulse Ox
98.9 F 70 16 103/56 92
12/18/24 11:58 12/18/24 11:58 12/18/24 11:58 12/18/24 11:58 12/18/24 11:58
Vital Signs
Temp Pulse Resp BP Pulse Ox
98.9 F 70 16 103/56 92
12/18/24 11:58 12/18/24 11:58 12/18/24 11:58 12/18/24 11:58 12/18/24 11:58
Intake & Output
12/16/24 12/17/24 12/18/24 12/19/24
07:59 07:59 07:59 07:59
Intake Total 1589.9 / 1600.4 245.0 / 265.0 710 / 960 490 / 490
Output Total 1515 / 1565 2090 / 2165 2685 / 2685 1275 / 1275
Balance 74.9 / 35.4 -1845.0 / -1900.0 -1975 / -1725 -785 / -785
Physical Exam
Physical Exam
GEN: No distress, awake, alert, oriented x3. sitting in chair
HEENT: supple, anicteric, mmm, eomi
LUNGS: Diminished BS B/L, no wheezes
CV: Reg, S1/S2, no murmur
ABD: soft, BS+, NT/ND
EXT: No cyanosis, clubbing. trace edema of B/L LE
NEURO: Gross non-focal
SKIN: Warm, pink, dry. No rash. Sternotomy dressing c/d/i.
--- NOTE | 2024-12-18 16:00 | PTCARENOTE ---
Right IJ cordis d/c per orders. Hemostasis achieved. Pt resting in bed. BP 90/54. POX 90% on RA. Surgical sites stable. 4x4 dressing applied to old chest tube sites d/t small amount of drainage. Sotomayor draining adequate amounts of catracho urine.
--- NOTE | 2024-12-18 16:22 | CM ---
dc plans remian home with f/u visit from ct transitional care nurse after dc. pt to go home with Sotomayor and F/U with urology in 1-2 wks.
--- NOTE | 2024-12-18 20:00 | PTCARENOTE ---
Assumed care of patient at 1900. OOB to chair, AOx3. SR on CM, heart tones audible, trace LE edema, pulses palpable. Lungs diminished with rhonchi - CVPA made aware - on RA, intermittent moist productive cough. Abdomen SNT, tolerating PO intake,
passing flatus. Coude Sotomayor catheter urology determination remains in place with yellow urine, sanguineous/purulent urethral meatal discharge, pt c/o pain and feelings of 'tugging' when he moves. All surgical sites CDI COSTA. PIVx1, dressing from
previous RIJ cordis CDI. Patient placed into bed after CHG wipes, updated on POC, in agreement, call [facility] within reach, assessment of needs ongoing.
--- NOTE | 2024-12-19 | PTCARENOTE ---
Patient in bed, attempting to sleep between care. Sotomayor care completed, upon closer inspection the patient was noted to have increased purulent drainage from inside of the urethral meatus. Degree of discomfort unchanged. Discussed with CVPA and
fluid culture collected and sent. Patient education provided. VSS. Assessment of needs ongoing.
[2024-12-19 00:32] VITALS: BP 117/62
--- NOTE | 2024-12-19 02:41 | W.PN.CT ---
Addendum entered and electronically signed by Elier Mobley MD 12/19/24 09:26:
I saw and examined the patient.
The PA's note was reviewed and I agree with the note.
Comment:
POD#4 s/p CABG x 3, ELAA
No issues.
Send UA/UCx given purulence around judd catheter
Discussed judd w/ urology; no need for removal/exchange - pt. to call urology office on Saturday to arrange F/U
Check 2-view CXR
Potential D/C home later today
Original Note:
Today's Communication / Plan
-
-pod #4
-no significant issues overnight. Hemodynamically and neurologically intact. Looks and feels better overall, ambulated without issues
-continue Mucinex and acapella for cough. Pt is a current smoker
-tmax 99.5 (prior 100.1 -101.3), wbc has been trending down from 15.9 to 14.5 to 10.8 to 8.8
-Judd catheter placed by Urology preop - will d/c home with Judd. ? purulent discharge from urethra around Judd - sent cx- follow
-diuresed with 40 IV Lasix (UO 1515)
-follow 2v-CXR
-encourage IS, OOB, ambulate
-appreciate everyone's input
-possible d/c home
Assessment / Plan
-
Assessment:
-S/P Standard sternotomy/CABG x 3 (In situ DAVIDSON to LAD, Ao to RSVG to OM 1, Ao to RSVG to distal RCA)/Left atrial appendage exclusion [35 mm device]/ Endoscopic vein harvesting of right lower extremity, by Dr. Viera, 12/15/24, pod#4
-Difficult judd insertion intraop S/P Urethral dilation and calibration (Raghav male dilators)/Meatotomy/Flexible cystoscopy/Urethral dilation with S-curve dilators (over a guidewire)/Complicated catheter placement (16-[place] [employer] tip), by
Dr Pruett of Urology, 12/15/24
-Multivessel coronary artery disease
-Unstable angina
-LVEF 59% per intraop MERRY
-Hypertension
-Hyperlipidemia
-Preop bradycardia (47-52 bpm)
-Anxiety disorder
-Depression/Anxiety
-GERD
-Current tobacco abuse (smokes several cigarettes per day x 30 years)
-Former ETOH (quit )
-History of BXO of the glans penis
-Meatal stenosis and scarring
-Difficult Judd catheter placement
-S/P L shoulder repair, 2018
-S/P R rotator cuff repair, 2011
-Acute postop blood loss/Anemia (stable without blood transfusion)
-Acute postop thrombocytopenia (transfused 1 {5 pk} plts)
-Acute postop atelectasis
-Acute postop fever, likely d/t atelectasis
-Acute postop hypovolemia with subsequent hypervolemia
-Intraop difficult judd insertion S/P Urethral dilation/calibration and judd insertion by Urology
Discussed patient care with: Nursing and Care Team
Subjective
Procedure
S/P Standard sternotomy/CABG x 3 (In situ DAVIDSON to LAD, Ao to RSVG to OM 1, Ao to RSVG to distal RCA)/Left atrial appendage exclusion [35 mm device]/ Endoscopic vein harvesting of right lower extremity, by Dr. Viera, 12/15/24
-
Date of Service: December 19, 2024
Objective Data
-
PT 16.6 Sec (11.4-14.6) H 12/15/24 11:23
INR 1.32 12/15/24 11:23
APTT 27.7 Sec (23.4-35.0) 12/15/24 11:23
Vital Signs
Vital Signs
Temp Pulse Resp BP Pulse Ox
99.5 F 70 18 117/62 90
12/19/24 00:33 12/19/24 01:00 12/19/24 00:33 12/19/24 00:32 12/19/24 00:32
CT Intake/Output/Weight
12/18/24 12/18/24 12/19/24
06:59 18:59 06:59
Intake Total 600 / 710 490 / 1210 720 / 1210
Output Total 675 / 2685 1515 / 1685 170 / 1685
Balance -75 / -1975 -1025 / -475 550 / -475
SaO2: 90
Physical Exam
-
General: Awake and AOx3
Cardiovascular: Regular rate & rhythm, No Murmurs and No Rub
Respiratory: Rhonchi
Sternum: Stable
Incision: Clean, Dry and Intact
Extremities: No Edema
Abdomen: soft, nontender, nondistended, + bowel sounds
Data Reviewed
-
Lab Results: Results Reviewed
Medications: Active Meds Reviewed
Chest X-Ray: Report Reviewed and Image Reviewed
ECG: Report Reviewed and Image Reviewed
[2024-12-19 04:37] VITALS: BP 103/56
[2024-12-19 04:55] LABS: Hematocrit 32.3 % (39.0-52.0); Mean Corp Hgb Conc. 34.1 g/dL (33.0-37.0); Mean Platelet Volume 9.9 fL (7.4-10.4); Platelet Count 134 10^3/uL (130-400); Red Blood Cell Count 3.55 10^6/uL (4.70-6.10); Red Cell Dist. Width 14.1 % (11.5-14.5); White Blood Cell Count 8.8 10^3/uL (4.8-10.8)
[2024-12-19 05:28] LABS: Blood Urea Nitrogen 21 mg/dl (9-20); Calcium 8.2 mg/dl (8.4-10.2); Carbon Dioxide 28 mmol/L (22-30); Chloride 105 mmol/L (98-107); Estimated Creatinine Clearance 77 ml/min; Glucose 108 mg/dl (70-99); Magnesium 2.2 mg/dl (1.6-2.3); Potassium 4.1 mmol/L (3.5-5.1); Sodium 137 mmol/L (135-145); eGFR > 60.00
[2024-12-19 06:00] VITALS: BMI 27.8
[2024-12-19] MEDS: TYLENOL 1000 MG PO ×2 (06:10→13:21)
--- NOTE | 2024-12-19 07:00 | PTCARENOTE ---
received report from previous RN at change of shift from previous RN. Pt OOB in chair, resting comfortably. AAOX3, reports moderate sternal incisional pain. SR on telemetry heart rate 50-60s. pulses palpable. trace edema in lower extremities. pt on
room air sat 92%. lung sounds diminished in bases. occasional moist productive cough. active bowel sounds, tolerating diet. judd in place draining clear yellow urine. white thick drainage noted from urethra. PA at bedside to assess. pt updated on
plan of care for the day. see worklist for full nursing assessment and interventions.
[2024-12-19 08:00] VITALS: BP 114/55
[2024-12-19] MEDS: LOPRESSOR 12.5 MG PO (08:04)
[2024-12-19] MEDS: NEURONTIN 100 MG PO (08:04)
[2024-12-19] MEDS: ROXICODONE 5 MG PO ×2 (08:04→13:22)
[2024-12-19] MEDS: VITAMIN C 500 MG PO (08:04)
[2024-12-19] MEDS: LOW STRENGTH ASPIRIN 81 MG PO (08:04)
[2024-12-19] MEDS: PROTONIX 40 MG PO (08:04)
[2024-12-19] MEDS: PACERONE 200 MG PO (08:04)
[2024-12-19] MEDS: MAGNESIUM OXIDE 500 MG PO (08:04)
[2024-12-19] MEDS: LIPITOR 40 MG PO (08:05)
[2024-12-19] MEDS: MUCINEX 600 MG PO (08:05)
[2024-12-19] MEDS: SENOKOT-S 1 TABLET PO (08:05)
[2024-12-19] MEDS: PLAVIX 75 MG PO (08:05)
[2024-12-19] MEDS: LIDOCAINE 4% PATCH 1 PATCH TOPICAL (08:05)
[2024-12-19] MEDS: FEOSOL 325 MG PO (08:05)
[2024-12-19] MEDS: BACTROBAN 2% OINTMENT 1 APPLIC NASAL (08:06)
[2024-12-19] MEDS: NSS IV (08:24)
[2024-12-19] MEDS: SPIRIVA RESPIMAT 2.5 MCG 2 PUFF INH (08:27)
[2024-12-19 09:57] LABS: Urine Albumin 2+ (Neg - Trace); Urine Bilirubin Negative (Negative); Urine Character Clear (Clear); Urine Color Yellow; Urine Glucose Negative (Negative); Urine Ketone Negative (Negative); Urine Leukocyte 2+ (Negative); Urine Nitrite Negative (Negative); Urine Occult Blood 4+ (Negative); Urine Urobilinogen Negative (Neg - 1+)
[2024-12-19 10:10] LABS: Urine Bacteria Few (Negative); Urine Squamous Cell 0-2 /LPF (Few); Urine White Cell 0-2 /HPF (0-5)
--- NOTE | 2024-12-19 11:50 | W.[place]-PDMP ---
[place]-PD[place]
-
Checked the [place]- Prescription Drug Monitoring Program website, no red flags identified; safe to proceed with prescription.
--- NOTE | 2024-12-19 11:51 | W.DCSUMMARY ---
Discharge Summary
Discharge Data
Date of Admission: 12/15/24
Date of Discharge: 12/19/24
-
Pending Results: No
Hospital Course
Primary care physician:
RE Love
Outpatient cardiac cath lab technologist:
Андрей Bailey
Inpatient consultants:
Juan Carlos Pruett MD
Procedures:
1. 12/15/24: Coronary artery bypass grafting x 3 (In situ DAVIDSON to LAD, Ao to RSVG to OM 1, Ao to RSVG to distal RCA), Left atrial appendage exclusion [35 mm device]
2. 12/15/24: urethral/meatal dilation, meatotomy, flexible cystoscopy, urethral dilation over Guidewire, complicated catheter placement
Primary Diagnosis:
1. Multivessel coronary artery disease
2. Unstable angina
3. Hypertension
4. Hyperlipidemia
5. Anxiety disorder
6. Depression
7. GERD
8. Tobacco abuse
Secondary Diagnoses:
1. Acute blood loss anemia
2. History of BXO of the glans penis, Meatal stenosis and scarring.
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 He was recently seen by his cardiac cath lab technologist,
Leo, for complaints of chest pressure and an abnormal stress test. That stress test revealed a predominantly fixed, severe, moderate size defect in the LAD territory. There was a large, severe mostly reversible perfusion defect in the
inferior septal and inferior segments. Echocardiogram showed normal biventricular size and function with an ejection fraction estimated at 50%. There is no evidence of aortic stenosis or mitral valve regurgitation. He did have trace aortic
regurgitation and trace tricuspid valve regurgitation. Left heart cath demonstrated significant mid LAD disease. He had proximal 90% and 50% distal left main disease. His left circumflex was relatively free of disease. The RCA was totally
occluded proximally with left to right collateralization. He was seen in the outpatient setting by Dr. Viera who discussed with him surgical revascularization. The patient agreed and consent was obtained and surgery was scheduled.
Hospital course: The patient was admitted via same day admissions, taken to the OR and underwent CABGx3 (as noted above). Difficulty placing judd required instrumentation and placement by Urology (see Urology Op note). He tolerated the
procedure well and was transferred to the CVICU in stable condition on no vasoactive support. He was extubated later that afternoon and required short term BiPAP for hypercapnia. He progressed well along the clinical pathway and had an uneventful
postoperative coarse. He remained in sinus rhythm throughout his stay. CXR was stable following CT removal. He was discharged with a judd catheter in place and was instructed to call Urology (Dr. Pruett) on Saturday to arrange an appointment. He
was also given instructions on wound care, diet, and physical restrictions.
Home medication changes:
Discontinued amlodipine, coreg, and NTG
Started metoprolol, plavix, and spiriva
Continued ASA, atorvastatin, and omeprazole.
Discharge Plan
-
Patient Disposition: Home (Routine Discharge)
Discharge Diagnosis/Procedures: CABG x 3, left atrial appendage clip (12/14/24)
Condition: Good
Diet: Low Cholesterol and Low Sodium
Activity: No strenuous activity
Driving Restrictions: Not until seen by your Dr
Bathing Restrictions: OK to Shower
Other Services: Cardiac Rehab
Specialty Instructions: Weigh Daily- Call MD for wt gain/loss 3 lbs overnight/5 lbs in 1 week
Activity Restrictions/Additional Instructions:
Please call to make appointments for Phase II Cardiac Rehab:
1) [facility]
[phone] [place] [address]
Referrals:
CT Transitional Care Nurse [Outside]
Referral Note:
The Cardiothoracic Transitional Care Nurse will call you to set up a visit in 1-2 days.
Iveth Gómez CRNP [Family Provider, General]
Laci Drake MD [Active, Pulmonary Medicine] - in two to four weeks
Referral Note: full PFTs on day of office visit
Juan Carlos Pruett MD [Active, Urology] - in one to two weeks
Rajendra Bailey MD [Non-Admitting Privileges] - 01/22/25 3:00 pm
Donnie Viera MD [Active, Cardiac Surgery] - 01/18/25 1:00 pm
Prescriptions:
New
clopidogrel 75 mg Tablet
75 mg PO DAILY Qty: 30 2RF
metoprolol tartrate 25 mg Tablet
12.5 mg PO Q12 Qty: 30 2RF
oxycodone 5 mg Tablet
5 mg PO Q4HPRN PRN (Reason: moderate pain) Qty: 20 0RF
acetaminophen 325 mg Tablet
650 mg PO Q4HPRN PRN (Reason: mild pain,headache,temp >101F ) Qty: 0 0RF
tiotropium bromide 2.5 mcg/actuation mist
2 puff inhalation DAILY Qty: 4 0RF
Continued
atorvastatin 40 mg Tablet
40 mg PO DAILY
omeprazole 20 mg Capsule,Delayed Release(Dr/Ec)
20 mg PO DAILY
aspirin 81 mg Tablet
81 mg PO DAILY
Discontinued
carvedilol 12.5 mg Tablet
12.5 mg PO Q12H
amlodipine 10 mg Tablet
5 mg PO BID
nitroglycerin [nitroglycerin] 0.4 mg tablet, sublingual
0.4 mg sublingual [id number] PRN (Reason: chest pain) Qty: 25 5RF
Patient Comments:
Pt states he has not taken NTG tablets.
Discharge Orders:
Discharge Patient (As Directed); Ordered 12/19/24
Ordered By: Lionel Bernal
Care Plan Goals
Care Plan Goals:
Problem: Readiness for enhanced knowledge related to diagnosis and treatment plan
Goal: Understand your diagnosis and treatment plan needs, including medications if applicable.
Instructions: Know your diagnosis, underlying causes and treatment plan options, including medications if applicable. Consult with your health care team to learn about your diagnosis and treatment plan, including medications if applicable.
Discharge Date and Time
Discharge Date/Time: 12/19/24 13:47
Print Language: BELIZEAN
[2024-12-19 11:56] VITALS: BP 105/58
--- NOTE | 2024-12-19 12:00 | PTCARENOTE ---
assessment unchanged. pt resting comfortably. 94-95% on room air. educated patient on judd care- switched to leg bag. pt ambulated in hallway without difficulty.
== END 2024-12-19 13:47 | disposition home or self-care (01) | DRG 235 ==
LOC: CVICU 05:04
PROVIDERS: Anesthesiology; Clinical Nurse Specialist Acute Care; Nurse Practitioner; Physician Assistant; Physician Assistant Medical; ADMITTING PHYSICIAN Thoracic Surgery (Cardiothoracic Vascular Surgery); CONSULT PHYSICIAN Internal Medicine Cardiovascular Disease; CONSULT PHYSICIAN Internal Medicine Critical Care Medicine; CONSULT PHYSICIAN Surgery
PROC: 06BP4ZZ Excision of Right Saphenous Vein, Percutaneous Endoscopic Approach (ICD-10-PCS; 2024-12-15)
PROC: 0T7D8ZZ Dilation of Urethra, Via Natural or Artificial Opening Endoscopic (ICD-10-PCS; 2024-12-15)
PROC: 021109W Bypass Coronary Artery, Two Arteries from Aorta with Autologous Venous Tissue, Open Approach (ICD-10-PCS; 2024-12-15)
PROC: 5A1221Z Performance of Cardiac Output, Continuous (ICD-10-PCS; 2024-12-15)
PROC: 5A09357 Assistance with Respiratory Ventilation, Less than 24 Consecutive Hours, Continuous Positive Airway Pressure (ICD-10-PCS; 2024-12-15)
PROC: 02L70CK Occlusion of Left Atrial Appendage with Extraluminal Device, Open Approach (ICD-10-PCS; 2024-12-15)
PROC: B24BZZ4 Ultrasonography of Heart with Aorta, Transesophageal (ICD-10-PCS; 2024-12-15)
PROC: 02100Z9 Bypass Coronary Artery, One Artery from Left Internal Mammary, Open Approach (ICD-10-PCS; 2024-12-15)
DX: I25.110 Atherosclerotic heart disease of native coronary artery with unstable angina pectoris (principal); J95.821 Acute postprocedural respiratory failure; D62 Acute posthemorrhagic anemia; J98.11 Atelectasis; I10 Essential (primary) hypertension; N35.911 Unspecified urethral stricture, male, meatal; N48.0 Leukoplakia of penis; E78.5 Hyperlipidemia, unspecified; K21.9 Gastro-esophageal reflux disease without esophagitis; F17.210 Nicotine dependence, cigarettes, uncomplicated; F32.A Depression, unspecified; F41.9 Anxiety disorder, unspecified; I44.0 Atrioventricular block, first degree; D69.59 Other secondary thrombocytopenia; Y83.2 Surgical operation with anastomosis, bypass or graft as the cause of abnormal reaction of the patient, or of later complication, without mention of misadventure at the time of the procedure; I25.82 Chronic total occlusion of coronary artery; R73.9 Hyperglycemia, unspecified; E86.1 Hypovolemia; E87.70 Fluid overload, unspecified; Z79.82 Long term (current) use of aspirin; Z79.899 Other long term (current) drug therapy; Z82.49 Family history of ischemic heart disease and other diseases of the circulatory system
CPT/HCPCS: 94727; 94729; 71045; 71046; 80048; 80053; 81003; 81015; 82248; 82330; 82565; 82805; 82810; 82947; 82962; 83036; 83735; 84100; 84132; 84302; 84520; 85014; 85018; 85025; 85027; 85049; 85610; 85730; 86850; 86900; 86901; 86920; 87070; 87077; 87086; 87205; 93005; 93312; 93320; 93325; 93880; 93923; 93931; 94002; 94060; 94640; 94660; 99406; A4300; C1769; J2916